=== PATIENT | female | born 1950 | race Caucasian/White ===

== ENCOUNTER 2021-04-30 15:51 | Inpatient (IN) ==
[2021-04-30 19:41] LABS: BASOPHILS # (AUTO) 0.1 X10^3/uL (0.0-0.1); BASOPHILS % (AUTO) 0.9 % (0.2-1.0); EOSINOPHILS # (AUTO) 0.2 x10^3/uL (0.0-0.2); EOSINOPHILS % (AUTO) 2.7 % (0.9-2.9); HEMATOCRIT 36.5 % (36.0-47.0); HEMOGLOBIN 12.3 g/dL (12.0-16.0); LYMPHOCYTES # (AUTO) 2.6 X10^3/uL (1.3-2.9); LYMPHOCYTES % (AUTO) 28.4 % (21.0-51.0); MEAN CORPUSCULAR HEMOGLOBIN 30.3 pg (27.0-34.0); MEAN CORPUSCULAR HGB CONC 33.8 g/dL (33.0-35.0); MEAN CORPUSCULAR VOLUME 89.7 fL (80.0-100.0); MEAN PLATELET VOLUME 9.3 fL (7.4-11.0); MONOCYTES # (AUTO) 0.8 x10^3/uL (0.3-0.8); MONOCYTES % (AUTO) 8.3 % (0.0-13.0); NEUTROPHILS # (AUTO) 5.5 x10^3/uL (2.2-4.8); NEUTROPHILS % (AUTO) 59.7 % (42.0-75.0); PLATELET COUNT 264 X10^3/uL (150.0-450.0); RED BLOOD COUNT 4.07 X10^6/uL (3.5-5.4); RED CELL DISTRIBUTION WIDTH 13.4 % (11.6-16.5); WHITE BLOOD COUNT 9.1 X10^3/uL (3.6-10.0)
[2021-04-30 20:00] LABS: CALCIUM 9.3 mg/dL (8.5-10.1); CARBON DIOXIDE 25.4 mmol/L (21-32); COR CA(FOR HYPOALB) 10.1 mg/dL (8.5-10.1); CREATININE 1.66 mg/dL (0.55-1.02); TOTAL PROTEIN 7.6 g/dL (6.4-8.2)
[2021-04-30 20:24] VITALS: BMI 40.0
[2021-04-30] MEDS ORDERED: NovoLIN R (or HumuLIN R) SC PRN (22:00)
[2021-04-30] MEDS ORDERED: ZOFRAN TAB 4 MG PO PRN (22:00)
[2021-04-30] MEDS ORDERED: NITROSTAT SL PRN (22:00)
[2021-04-30] MEDS: LR 1,000 ML IV 1,000 ML IV SCH (22:33)
[2021-04-30] MEDS: ZANAFLEX PO PRN (22:33)
[2021-05-01] MEDS: ULTRAM PO PRN ×3 (00:35→21:20)
[2021-05-01] MEDS ORDERED: ULTRAM ONE (00:35)
[2021-05-01 05:17] LABS: CALCIUM 8.7 mg/dL (8.5-10.1); CARBON DIOXIDE 29.1 mmol/L (21-32); CREATININE 1.35 mg/dL (0.55-1.02)
[2021-05-01] MEDS: LYRICA CAP 50 mg PO SCH ×3 (06:02→21:03)
[2021-05-01] MEDS ORDERED: NS 100 ML IV 100 ML ONE (08:05)
[2021-05-01] MEDS: COREG TAB 12.5 MG PO SCH ×2 (09:00→20:18)
[2021-05-01] MEDS: PROTONIX TAB 40 MG PO SCH (09:00)
[2021-05-01] MEDS: ZESTRIL TAB 10 MG PO SCH (09:00)
[2021-05-01] MEDS: ZETIA TAB 10 MG PO SCH (09:00)
--- NOTE | 2021-05-01 10:13 | CT ---
HISTORYCRITICAL LEFT LEG ISCHEMIASTUDYCTA abdomen, pelvis, and bilateral lower extremities without and with IV contrastCOMPARISONCTA 11/08/2020TECHNIQUEMultiple axial images of the abdomen, pelvis, and bilateral lower extremities were obtained from the lung bases to the plantar surface of the feet prior to and following the administration of IV contrast. 150 cc Omnipaque 350 IV contrast. 3D reconstructions were performed utilizing radial maximum intensity projection imaging. Dose reduction techniques including Automated Exposure Control (AEC) and adjustment of mA and kV were utilized.FINDINGSPossible fatty infiltration of the liver. Prior cholecystectomy. Pancreas and spleen appear normal. No adrenal nodules. Stable simple cyst is seen in the right kidney. No left renal lesion is seen. Bladder appears normal. Phleboliths are seen in the pelvis. No free pelvic fluid is seen. Appendix is not seen but no pericecal inflammation is seen. No evidence of bowel obstruction. No adnexal masses.Abdominal aorta: Abdominal aorta is normal in size. Diffuse partially calcified plaque is seen. Mild stenoses are seen in the origins of the SMA and celiac axis. More moderate stenosis is suspected within the mid to distal SMA. GRIS is probably occluded at its origin, similar to prior study. Moderate to high-grade stenoses are suspected in the renal arteries. There is an accessory left renal artery inferiorly. It has moderate stenosis but appears to enhance.Common iliac arteries: Calcified plaque causes mild stenosis.External iliac arteries: Mostly calcified plaque causes mild stenosis.Right lower extremity: Mild stenosis in the right [employer]. More moderate stenosis is seen in the origin of the right SFA with approximately 50 percent stenosis, similar to prior study. Mild stenoses are seen in the proximal course of the right SFA. There is a stent in the mid to distal right SFA with normal enhancement. Artifact from knee prosthesis limits evaluation of the popliteal artery. Distal popliteal artery enhances normally. There may be occlusion of the origin of the right anterior tibial artery. Collaterals appear to fill the proximal course of the right anterior tibial artery. High-grade stenoses are seen along the course of the right anterior tibial artery. All 3 vessels are seen enhancing at the ankle.Left lower extremity: There appears to be a 1.5 cm long area of occlusion in the left [employer], a changed appearance since prior study. Left SFA appears to be supplied via collaterals. Mild stenoses are seen in the proximal SFA. In the mid left SFA there is 60 percent focal stenosis, similar to prior study. Mild stenoses are seen in the distal left SFA. Less than 50 percent stenoses are seen in the popliteal artery. There is probable occlusion of the left anterior tibial artery origin with collaterals supplying the anterior tibial artery. Moderate to prominent stenoses are seen along the course of the anterior tibial artery. No all 3 vessels are seen enhancing at the ankle.IMPRESSIONPossible hemodynamically significant stenoses are seen in the SMA and renal arteries. GRIS is probably occluded.Patent right SFA stent with mild stenoses in the right [employer] and SFA. Right popliteal artery is obscured. Occlusion of the right anterior tibial artery is suspected with collateral supplying the proximal right anterior tibial artery.1.5 cm long area of occlusion of the left [employer], new since prior study. Collaterals supply the left SFA. Approximately 60 percent focal stenosis is seen in the mid left SFA, similar to prior study. Likely occlusion of the left anterior tibial artery origin with collaterals supplying the proximal left anterior tibial artery.Electronically signed by: Price Patel (May 01, 2021 10:12:07)
[2021-05-01] MEDS: LR 1,000 ML IV 1,000 ML IV SCH ×3 (10:28→20:38)
[2021-05-01] MEDS ORDERED: POTASSIUM CHLORIDE LIQ 20 MEQ UDC PO PRN (16:56)
[2021-05-01] MEDS ORDERED: KLOR-CON PO PRN (16:56)
[2021-05-01] MEDS ORDERED: K-RIDER 10 MEQ/NS 100 ML 10 MEQ/100 ML BAG IV PRN (16:56)
[2021-05-01] MEDS ORDERED: K-DUR TAB 20 MEQ PO PRN (16:56)
[2021-05-01] MEDS ORDERED: POTASSIUM CHL 40 MEQ/NS 0.45% 500 ML IV PRN (16:56)
[2021-05-01] MEDS ORDERED: MICRO K EXTEN CAP 10 MEQ PO PRN (16:56)
[2021-05-01] MEDS ORDERED: POTASSIUM CHL 60 MEQ/NS 0.45% 500 ML IV PRN (16:56)
[2021-05-01] MEDS: DESYREL PO SCH (20:18)
[2021-05-01] MEDS: ZANAFLEX PO PRN (20:19)
--- NOTE | 2021-05-01 22:18 | NOTE.SOAP ---
Soap Note Note for Day of Date of Exam: 05/01/21 Subjective Data Subjective Data: No change, still c/o left foot pain Objective Data Temperature: 97.7 F Pulse Rate: 54 Respiratory Rate: 19 Blood Pressure: 107/68 O2 Sat by Pulse Oximetry: 94 Objective Data: Nio change in PE. Absent pulse left foot. 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
[2021-05-02] MEDS: LR 1,000 ML IV 1,000 ML IV SCH ×2 (00:11→14:32)
[2021-05-02 05:19] LABS: BASOPHILS # (AUTO) 0.1 X10^3/uL (0.0-0.1); BASOPHILS % (AUTO) 0.9 % (0.2-1.0); EOSINOPHILS # (AUTO) 0.3 x10^3/uL (0.0-0.2); EOSINOPHILS % (AUTO) 4.4 % (0.9-2.9); HEMATOCRIT 29.5 % (36.0-47.0); LYMPHOCYTES # (AUTO) 2.4 X10^3/uL (1.3-2.9); LYMPHOCYTES % (AUTO) 33.6 % (21.0-51.0); MEAN CORPUSCULAR HEMOGLOBIN 30.6 pg (27.0-34.0); MEAN CORPUSCULAR HGB CONC 33.9 g/dL (33.0-35.0); MEAN CORPUSCULAR VOLUME 90.3 fL (80.0-100.0); MEAN PLATELET VOLUME 9.9 fL (7.4-11.0); MONOCYTES # (AUTO) 0.5 x10^3/uL (0.3-0.8); MONOCYTES % (AUTO) 7.3 % (0.0-13.0); NEUTROPHILS # (AUTO) 3.9 x10^3/uL (2.2-4.8); NEUTROPHILS % (AUTO) 53.8 % (42.0-75.0); PLATELET COUNT 207 X10^3/uL (150.0-450.0); RED BLOOD COUNT 3.27 X10^6/uL (3.5-5.4); RED CELL DISTRIBUTION WIDTH 13.6 % (11.6-16.5); WHITE BLOOD COUNT 7.3 X10^3/uL (3.6-10.0)
[2021-05-02] MEDS: LYRICA CAP 50 mg PO SCH ×3 (05:19→21:24)
[2021-05-02 05:29] LABS: ALANINE AMINOTRANSFERASE 13 Units/L (12-78); ALBUMIN 2.4 g/dL (3.4-5.0); ALKALINE PHOSPHATASE 110 Units/L (46-116); ASPARTATE AMINO TRANSFERASE 10 Units/L (15-37); BLOOD UREA NITROGEN 13 mg/dL (7-18); CALCIUM 8.5 mg/dL (8.5-10.1); CARBON DIOXIDE 28.1 mmol/L (21-32); CHLORIDE 105 mmol/L (98-107); COR CA(FOR HYPOALB) 9.8 mg/dL (8.5-10.1); COR NA(FOR HYPERGLY) 140 mmol/L (136-145); CREATININE 1.08 mg/dL (0.55-1.02); SODIUM 138 mmol/L (136-145); TOTAL PROTEIN 5.7 g/dL (6.4-8.2); eGFR NON BLACK RACES 53 (>60)
[2021-05-02] MEDS ORDERED: NS 1,000 ML IV 1,000 ML ONE (09:07)
[2021-05-02] MEDS ORDERED: ANCEF 1 GRAM IV PREMIX* 2 G/100 ML BAG IV ONE (09:08)
[2021-05-02] MEDS ORDERED: HEPARIN SODIUM INJ 5000 UNITS ONE ×2 (09:17→11:39)
[2021-05-02] MEDS ORDERED: MARCAINE 0.5% ONE ×2 (09:17→10:58)
[2021-05-02] MEDS ORDERED: HEPARIN SODIUM IN D5W 75,000 UNITS/1,500 ML BAG ONE (09:18)
[2021-05-02] MEDS ORDERED: FENTANYL VIAL INJ 100 mcg ONE ×2 (09:42→11:29)
[2021-05-02] MEDS ORDERED: KETALAR ONE (09:50)
[2021-05-02] MEDS ORDERED: SUPRANE ONE (09:50)
[2021-05-02] MEDS ORDERED: ZOFRAN INJ 4 MG VIAL ONE (09:50)
[2021-05-02] MEDS ORDERED: EPHEDRINE SULFATE INJ ONE (09:50)
[2021-05-02] MEDS ORDERED: QUELICIN (OR ANECTINE) ONE (09:50)
[2021-05-02] MEDS ORDERED: VERSED ONE (09:50)
[2021-05-02] MEDS ORDERED: NARCAN INJ ONE (09:50)
[2021-05-02] MEDS ORDERED: BRIDION ONE (09:50)
[2021-05-02] MEDS ORDERED: DIPRIVAN VIAL ONE (09:50)
[2021-05-02] MEDS ORDERED: XYLOCAINE 2 % (PLAIN) ONE (09:50)
[2021-05-02] MEDS ORDERED: HEPARIN SODIUM IN D5W 25,000 UNITS/500 ML BAG ONE (11:38)
[2021-05-02] MEDS: PROTONIX TAB 40 MG PO SCH (11:44)
[2021-05-02] MEDS: COREG TAB 12.5 MG PO SCH ×2 (11:44→20:00)
[2021-05-02] MEDS: ZETIA TAB 10 MG PO SCH (11:45)
[2021-05-02] MEDS: ZESTRIL TAB 10 MG PO SCH (11:45)
[2021-05-02] MEDS ORDERED: ZOFRAN INJ 4 MG VIAL IVP PRN (12:51)
[2021-05-02] MEDS ORDERED: REGLAN INJ 10 MG VIAL IVP PRN (12:51)
[2021-05-02] MEDS ORDERED: BENADRYL INJ 50 MG VIAL IVP PRN (12:51)
[2021-05-02] MEDS ORDERED: PHENERGAN INJ 25 MG IM PRN (12:51)
[2021-05-02] MEDS ORDERED: BARHEMSYS INJ IVP PRN (12:51)
[2021-05-02] MEDS ORDERED: PROTAMINE SULFATE 50 MG VIAL ONE (13:08)
--- NOTE | 2021-05-02 13:39 | OR.IMMED ---
IMMEDIATE POST-OP NOTE Immediate Post-Op Note Pre-Op Diagnosis: acutely ischemic left leg. And she'll break chill index equals 0. 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 Specimens Removed: plaque left femoral artery and thrombus Estimated Blood Loss: 200 cc Drains: NONE Complications: none Discharge Progress Notes: To ICU begin diabetic diet , probably discharge home tomorrow Condition: Stable Final Diagnosis: as above
[2021-05-02] MEDS: ULTRAM PO PRN ×2 (14:33→18:18)
--- NOTE | 2021-05-02 18:03 | DR.OPNOTE ---
OP NOTE Pre-Op Diagnosis: critical limb threatening ischemia left lower extreity Post-Op Diagnosis: same , occlusion of left common femoral artery Procedure Date Date Of Procedure: 05/02/21 Procedure: The patient was taken to the operative suite and placed in the supine position. Both groins and the entire left leg were prepped and draped in sterile fashion. Time out for the procedure obtained. Ultrasound used to identify the right common femoral artery and the skin overlying it infiltrated with 0.5 % Marcaine . Ultrasound used to guide puncture of the right common femoral artery and a 0. 012 inch guide wire placed with some difficulty. Incisio n made over the skin at the edge of the guidewire with a #r 11 knife blade and a micro sheath placed over the guide wire into the right common femoral artery. The small wire removed and exchanged for a 0. 035 inch Advantage glidewire and the micro sheath exchanged for a 5 Fr vascular sheath. The patient was administered 5000 units of intravenous Heparin. A flush catheter was placed over the guide wire into the aorta and diagnostic aortogram carried out with the power injector revealing normal aorta distally and normal iliac arteries bilaterally. The flush catheter was used to guide the guide wire down the left iliac artery and the flush catheter exchange for a Trailblazer catheter. Trailblazer catheter used to perform sequential arteriograms of the left leg which showed the complete total occlusion of a small segment of the mid portion of the left common femoral artery . The superficial femoral artery was normal with no significant disease. The patient had 2 vessel runoff by the posterior tibial and the peroneal arteries . The left anterior tibial was ocluded . I attempted to place a guide wire across the complete occlusion but it appeared to cause a dissection of the common femoral artery and at this point I decided to abandon peripheral intervention to perform a left femoral endarterectomy with patch angioplasty. The skin overlying the left groin was inj ected with 10 cc's of 0. 5% Marcaine. Vertical incision made with the number 15 by a knife throught the skin and dissection carried down , noting severe inflammation around where the Angioseal device which was used to close the left femoral artery puncture from a previous peripheral intervention case. The patient became uncomfortable and she was intubated and we finished the case as a general anesthesia. Difficult dissection was carried out and vessel loops were placed around the proximal common femoral artery at the junction with the external iliac artery. There was a good palpable pulse here. Vessel Loops also placed around the superficial femoral artery and the profunda femoris artery . A small clip placed on a branch exiting from the medial side of the common femoral artery. The patient had been given 5,000 units of intravenous Heparin already and the artery was clamped and occluded . The artery opened with a number 11 knife and Pott's scissors showing severe calcified plaque and thrombus near the site of the Angioseal device placement. Endarterectomy directly carried out with the Kuna dissector. The intima distally was tacked in 3 quadrants with 5-0 Prolene suture. Excellent flow through the proximal femoral artery was noted when I opened the clamp. The arteriotomy closed with a bovine pericardial patch measuring 8 cm by 0. 8 cm. This was sewn into place with running 5-0 Prolene suture . The patient has been given an additional 3,000 to happen at 1 hour. Once the patch was sewn into place all clamps removed and the patient had excellent flow through the femoral artery and the superficial femoral artery. There was no active bleeding. Surgicel placed over the patch and this was observed for 5 minutes. There was no active bleeding in the groin and it was closed in two layers of running 3-0 Vicryl suture .The skin closed with skin anna. The patient had excellent Doppler signal in the left posterior tibial artery at the ankle which had not been there preoperatively. She was taken to the PACU and then back to the ICU. Type of Anesthesia: Local (0.5% MArcaine ) Anesthesia Comment: MAc and then converted to general anesthesia Findings: as above Specimen/Pathology: plaque Type of Fluids Used:: Lactated Ringers Total Amount of Fluid Infused:: 750 cc Urine output: 250 cc EBL: 200 cc Complications:: none Needle/Sponge Count:: correct Disposition/Condition: Pt. tolerated procedure without difficulty. Extubated in the OR and taken to PACU in stable condition. Then returned to the ICU
--- NOTE | 2021-05-02 18:54 | NOTE.SOAP ---
Soap Note Note for Day of Date of Exam: 05/02/21 Subjective Data Subjective Data: Status post arteriogram of the left lower extremity with left femoral endarterectomy and Patch earlier today. Patient has tolerated this well. Taking a diet at this time. Complaining only of incisional tenderness in the left groin. Objective Data Temperature: 98.3 F Pulse Rate: 72 Respiratory Rate: 19 Blood Pressure: 115/55 O2 Sat by Pulse Oximetry: 99 Objective Data: Incision left groin clean and dry. Left foot warm. Duplex shows excellent arterial pulse in the left posterior tibial artery with audible biphasic sound. Assessment Assessment: Status post left femoral endarterectomy and patch with denominational of flow to the left foot . Plan Plan: Plan discharged to home in the morning. I have already started her Xarelto and aspirin back.
[2021-05-02] MEDS: DESYREL PO SCH (20:00)
[2021-05-02] MEDS: XARELTO PO SCH (20:01)
[2021-05-02] MEDS: ZANAFLEX PO PRN (20:01)
[2021-05-03] MEDS: LR 1,000 ML IV 1,000 ML IV SCH (03:34)
[2021-05-03 05:10] LABS: BASOPHILS # (AUTO) 0.1 X10^3/uL (0.0-0.1); BASOPHILS % (AUTO) 0.7 % (0.2-1.0); EOSINOPHILS # (AUTO) 0.3 x10^3/uL (0.0-0.2); EOSINOPHILS % (AUTO) 2.9 % (0.9-2.9); HEMATOCRIT 26.1 % (36.0-47.0); HEMOGLOBIN 8.8 g/dL (12.0-16.0); LYMPHOCYTES # (AUTO) 2.1 X10^3/uL (1.3-2.9); LYMPHOCYTES % (AUTO) 23.9 % (21.0-51.0); MEAN CORPUSCULAR HEMOGLOBIN 30.7 pg (27.0-34.0); MEAN CORPUSCULAR HGB CONC 33.8 g/dL (33.0-35.0); MEAN CORPUSCULAR VOLUME 90.9 fL (80.0-100.0); MEAN PLATELET VOLUME 10.1 fL (7.4-11.0); MONOCYTES # (AUTO) 0.9 x10^3/uL (0.3-0.8); MONOCYTES % (AUTO) 9.7 % (0.0-13.0); NEUTROPHILS # (AUTO) 5.7 x10^3/uL (2.2-4.8); NEUTROPHILS % (AUTO) 62.8 % (42.0-75.0); PLATELET COUNT 177 X10^3/uL (150.0-450.0); RED BLOOD COUNT 2.88 X10^6/uL (3.5-5.4); RED CELL DISTRIBUTION WIDTH 13.8 % (11.6-16.5)
[2021-05-03 05:14] LABS: CARBON DIOXIDE 28.8 mmol/L (21-32); CREATININE 1.15 mg/dL (0.55-1.02)
[2021-05-03] MEDS: LYRICA CAP 50 mg PO SCH (05:41)
[2021-05-03] MEDS: COREG TAB 12.5 MG PO SCH (08:15)
[2021-05-03] MEDS: ZETIA TAB 10 MG PO SCH (08:16)
[2021-05-03] MEDS: XARELTO PO SCH (08:16)
[2021-05-03] MEDS: ZESTRIL TAB 10 MG PO SCH (08:16)
[2021-05-03] MEDS: ULTRAM PO PRN (08:16)
[2021-05-03] MEDS: PROTONIX TAB 40 MG PO SCH (08:18)
[2021-05-03] MEDS ORDERED: ASPIRIN 81 MG CHEWTAB PO SCH (09:00)
--- NOTE | 2021-05-03 12:44 | W.DIS.FURT ---
Summary of Discharge Discharge Summary of Date Date of Exam: 05/03/21 Admission Date Date of Admission: 04/30/21 Admission Diagnosis Hospital Course: 70 year old female with severe peripheral vascular disease with ankle brachial indices of 0. 3 and 0. 4 . She had reconstruction of both legs with peripheral intervention but did require repeat stenting of the right leg. She presented approximately two months after the left leg intervention with rest pain and ankle brachial indices on this side which had been approximately 0. 9 were now approximately 0. 1. CT angiogram showed complete total occlusion of the mid common femoral artery. On table arteriogram confirmed this and I could not get a wire beyound the obstruction. It appeared as if the Angio-seal device had caused severe inflammation. Surgical exploration of this area confirmed that an she had endarterectomy and Patch angioplasty. Post rocedure her incision looks good with no drainage. She has an excellent doppler signal in the posterior tibial at the ankle with relief of rest pain pain. She will be discharged home now on her usual medications which also includes Xarelto 2. 5 mg BID and aspirin daily. She will be given a prescription for Percocet 5 mg tablets ,0ne every 6 hours PRN pain . She will follow up with me in one week. Vital Signs: Vital Signs (72 hours) 04/30/21 19:06 04/30/21 20:00 04/30/21 21:00 Temperature 97.8 F Pulse Rate 86 78 84 Respiratory Rate 20 22 30 H Blood Pressure O2 Sat by Pulse Oximetry 96 96 04/30/21 21:32 04/30/21 22:00 04/30/21 23:00 Temperature Pulse Rate 78 78 76 Respiratory Rate 26 H 19 26 H Blood Pressure 154/65 149/64 166/69 O2 Sat by Pulse Oximetry 96 94 L 96 05/01/21 00:01 05/01/21 00:35 05/01/21 01:00 Temperature 97.8 F Pulse Rate 59 L 51 L Respiratory Rate 20 20 19 Blood Pressure 133/59 139/65 O2 Sat by Pulse Oximetry 97 92 L 05/01/21 01:35 05/01/21 02:01 05/01/21 03:00 Temperature Pulse Rate 49 L 48 L Respiratory Rate 20 15 20 Blood Pressure 127/60 111/91 O2 Sat by Pulse Oximetry 93 L 95 05/01/21 04:00 05/01/21 05:00 05/01/21 06:00 Temperature 98.2 F Pulse Rate 43 L 45 L 51 L Respiratory Rate 17 16 8 L Blood Pressure 128/61 135/63 132/63 O2 Sat by Pulse Oximetry 96 96 97 05/01/21 08:00 05/01/21 09:00 05/01/21 10:00 Temperature 97.8 F Pulse Rate 43 L 54 L 53 L Respiratory Rate 16 20 22 Blood Pressure 138/60 129/62 123/76 O2 Sat by Pulse Oximetry 95 97 95 05/01/21 10:30 05/01/21 10:45 05/01/21 11:00 Temperature Pulse Rate 48 L 51 L 52 L Respiratory Rate 15 17 15 Blood Pressure O2 Sat by Pulse Oximetry 93 L 95 95 05/01/21 11:01 05/01/21 11:15 05/01/21 11:30 Temperature Pulse Rate 54 L 53 L 49 L Respiratory Rate 16 18 16 Blood Pressure 111/53 O2 Sat by Pulse Oximetry 93 L 95 96 05/01/21 11:45 05/01/21 12:00 05/01/21 12:15 Temperature 97.7 F Pulse Rate 48 L 53 L 50 L Respiratory Rate 24 16 17 Blood Pressure 103/68 O2 Sat by Pulse Oximetry 95 97 96 05/01/21 12:30 05/01/21 12:45 05/01/21 13:00 Temperature Pulse Rate 51 L 61 60 Respiratory Rate 18 18 20 Blood Pressure 151/68 O2 Sat by Pulse Oximetry 96 97 98 05/01/21 13:11 05/01/21 13:12 05/01/21 13:15 Temperature Pulse Rate 63 62 62 Respiratory Rate 15 18 26 H Blood Pressure 190/81 O2 Sat by Pulse Oximetry 98 97 05/01/21 13:16 05/01/21 13:30 05/01/21 13:45 Temperature Pulse Rate 60 56 L 53 L Respiratory Rate 37 H 25 H 18 Blood Pressure 151/68 O2 Sat by Pulse Oximetry 98 95 95 05/01/21 14:00 05/01/21 14:15 05/01/21 14:30 Temperature Pulse Rate 57 L 55 L 57 L Respiratory Rate 26 H 15 15 Blood Pressure 152/68 O2 Sat by Pulse Oximetry 95 94 L 94 L 05/01/21 14:45 05/01/21 15:00 05/01/21 15:15 Temperature Pulse Rate 52 L 53 L 54 L Respiratory Rate 16 17 14 Blood Pressure 146/66 O2 Sat by Pulse Oximetry 95 96 96 05/01/21 15:30 05/01/21 15:45 05/01/21 16:00 Temperature 97.7 F Pulse Rate 55 L 65 59 L Respiratory Rate 19 41 H 37 H Blood Pressure 141/63 O2 Sat by Pulse Oximetry 96 98 99 05/01/21 16:01 05/01/21 16:15 05/01/21 16:30 Temperature Pulse Rate 54 L 63 59 L Respiratory Rate 21 34 H 36 H Blood Pressure 141/63 O2 Sat by Pulse Oximetry 98 100 100 05/01/21 16:45 05/01/21 17:00 05/01/21 17:01 Temperature Pulse Rate 55 L 56 L 59 L Respiratory Rate 17 24 30 H Blood Pressure 121/55 O2 Sat by Pulse Oximetry 95 97 97 05/01/21 17:15 05/01/21 17:30 05/01/21 17:45 Temperature Pulse Rate 66 63 55 L Respiratory Rate 38 H 25 H 18 Blood Pressure O2 Sat by Pulse Oximetry 97 96 95 05/01/21 18:00 05/01/21 18:01 05/01/21 18:15 Temperature Pulse Rate 54 L 54 L 58 L Respiratory Rate 20 18 17 Blood Pressure 154/70 O2 Sat by Pulse Oximetry 95 94 L 97 05/01/21 18:30 05/01/21 18:45 05/01/21 19:00 Temperature Pulse Rate 54 L 57 L 57 L Respiratory Rate 21 22 22 Blood Pressure O2 Sat by Pulse Oximetry 95 94 L 96 05/01/21 19:15 05/01/21 19:30 05/01/21 19:45 Temperature Pulse Rate 55 L 55 L 52 L Respiratory Rate 16 24 18 Blood Pressure O2 Sat by Pulse Oximetry 95 96 95 05/01/21 20:07 05/01/21 20:10 05/01/21 20:15 Temperature 99.1 F Pulse Rate 77 60 68 Respiratory Rate 20 27 H Blood Pressure 187/75 159/65 O2 Sat by Pulse Oximetry 97 96 05/01/21 20:30 05/01/21 20:45 05/01/21 21:00 Temperature Pulse Rate 55 L 55 L 58 L Respiratory Rate 19 27 H 24 Blood Pressure O2 Sat by Pulse Oximetry 97 96 96 05/01/21 21:15 05/01/21 21:20 05/01/21 21:30 Temperature Pulse Rate 60 61 Respiratory Rate 28 H 20 27 H Blood Pressure O2 Sat by Pulse Oximetry 96 94 L 05/01/21 21:45 05/01/21 22:00 05/01/21 22:15 Temperature Pulse Rate 57 L 54 L 57 L Respiratory Rate 22 19 28 H Blood Pressure O2 Sat by Pulse Oximetry 96 94 L 95 05/01/21 22:18 05/01/21 22:20 05/01/21 22:30 Temperature 97.7 F Pulse Rate 54 L 54 L Respiratory Rate 19 20 17 Blood Pressure 107/68 O2 Sat by Pulse Oximetry 94 L 96 05/01/21 22:45 05/01/21 23:00 05/01/21 23:15 Temperature Pulse Rate 57 L 60 62 Respiratory Rate 18 22 16 Blood Pressure O2 Sat by Pulse Oximetry 96 96 93 L 05/01/21 23:30 05/01/21 23:36 05/01/21 23:45 Temperature Pulse Rate 59 L 55 L 52 L Respiratory Rate 13 13 8 L Blood Pressure 121/56 O2 Sat by Pulse Oximetry 94 L 95 95 05/02/21 00:00 05/02/21 00:15 05/02/21 00:30 Temperature 98.2 F Pulse Rate 53 L 56 L 56 L Respiratory Rate 14 17 16 Blood Pressure O2 Sat by Pulse Oximetry 95 96 94 L 05/02/21 00:45 05/02/21 01:00 05/02/21 01:15 Temperature Pulse Rate 55 L 53 L 52 L Respiratory Rate 18 19 18 Blood Pressure O2 Sat by Pulse Oximetry 95 96 96 05/02/21 01:30 05/02/21 01:45 05/02/21 02:00 Temperature Pulse Rate 53 L 50 L 52 L Respiratory Rate 17 17 17 Blood Pressure O2 Sat by Pulse Oximetry 96 96 95 05/02/21 02:15 05/02/21 02:30 05/02/21 02:45 Temperature Pulse Rate 52 L 50 L 51 L Respiratory Rate 17 17 17 Blood Pressure O2 Sat by Pulse Oximetry 97 97 97 05/02/21 03:00 05/02/21 03:15 05/02/21 03:30 Temperature Pulse Rate 50 L 51 L 50 L Respiratory Rate 17 18 17 Blood Pressure O2 Sat by Pulse Oximetry 96 97 98 05/02/21 03:45 05/02/21 04:00 05/02/21 04:15 Temperature Pulse Rate 53 L 48 L 49 L Respiratory Rate 16 16 18 Blood Pressure O2 Sat by Pulse Oximetry 97 96 96 05/02/21 04:30 05/02/21 04:45 05/02/21 05:00 Temperature Pulse Rate 50 L 47 L 48 L Respiratory Rate 15 16 16 Blood Pressure O2 Sat by Pulse Oximetry 96 96 97 05/02/21 05:15 05/02/21 05:30 05/02/21 05:45 Temperature Pulse Rate 45 L 48 L 50 L Respiratory Rate 16 15 16 Blood Pressure O2 Sat by Pulse Oximetry 97 97 96 05/02/21 05:54 05/02/21 06:00 05/02/21 06:15 Temperature 98.0 F Pulse Rate 50 L 50 L 50 L Respiratory Rate 15 16 16 Blood Pressure 135/65 O2 Sat by Pulse Oximetry 96 96 96 05/02/21 06:30 05/02/21 06:45 05/02/21 07:00 Temperature Pulse Rate 51 L 48 L 47 L Respiratory Rate 15 15 15 Blood Pressure O2 Sat by Pulse Oximetry 95 96 96 05/02/21 07:15 05/02/21 07:30 05/02/21 07:45 Temperature 98.0 F Pulse Rate 49 L 50 L 49 L Respiratory Rate 14 15 17 Blood Pressure O2 Sat by Pulse Oximetry 97 97 97 05/02/21 08:00 05/02/21 08:15 05/02/21 08:30 Temperature Pulse Rate 49 L 50 L 50 L Respiratory Rate 14 15 15 Blood Pressure O2 Sat by Pulse Oximetry 96 98 96 05/02/21 08:45 05/02/21 09:31 05/02/21 13:21 Temperature 98.0 F 98.8 F Pulse Rate 56 L 51 L 56 L Respiratory Rate 16 18 18 Blood Pressure 133/58 142/60 O2 Sat by Pulse Oximetry 97 95 95 05/02/21 13:31 05/02/21 13:32 05/02/21 13:36 Temperature Pulse Rate 57 L 57 L 58 L Respiratory Rate 18 18 18 Blood Pressure 170/76 169/71 153/75 O2 Sat by Pulse Oximetry 100 100 100 05/02/21 13:41 05/02/21 13:46 05/02/21 13:51 Temperature Pulse Rate 58 L 58 L 56 L Respiratory Rate 18 18 18 Blood Pressure 142/63 153/72 160/67 O2 Sat by Pulse Oximetry 100 96 95 05/02/21 14:03 05/02/21 14:04 05/02/21 14:11 Temperature Pulse Rate 55 L 54 L 55 L Respiratory Rate 29 H Blood Pressure 142/58 187/74 O2 Sat by Pulse Oximetry 98 99 100 05/02/21 14:15 05/02/21 14:16 05/02/21 14:30 Temperature Pulse Rate 49 L 49 L 54 L Respiratory Rate 24 21 25 H Blood Pressure 137/63 O2 Sat by Pulse Oximetry 98 98 100 05/02/21 14:31 05/02/21 14:33 05/02/21 14:45 Temperature Pulse Rate 55 L 52 L Respiratory Rate 23 20 23 Blood Pressure 153/63 144/64 O2 Sat by Pulse Oximetry 100 92 L 05/02/21 15:00 05/02/21 15:01 05/02/21 15:15 Temperature Pulse Rate 60 59 L 51 L Respiratory Rate 13 15 24 Blood Pressure 155/65 O2 Sat by Pulse Oximetry 96 87 L 96 05/02/21 15:20 05/02/21 15:30 05/02/21 15:31 Temperature Pulse Rate 52 L 55 L 57 L Respiratory Rate 15 15 12 Blood Pressure 159/66 122/73 O2 Sat by Pulse Oximetry 95 100 100 05/02/21 15:33 05/02/21 15:45 05/02/21 16:00 Temperature 98.3 F Pulse Rate 57 L 59 L Respiratory Rate 18 16 16 Blood Pressure O2 Sat by Pulse Oximetry 100 100 05/02/21 16:02 05/02/21 16:07 05/02/21 16:15 Temperature Pulse Rate 57 L 58 L 59 L Respiratory Rate 16 15 19 Blood Pressure 98/34 116/64 O2 Sat by Pulse Oximetry 100 100 100 05/02/21 16:30 05/02/21 16:45 05/02/21 17:00 Temperature Pulse Rate 60 67 63 Respiratory Rate 21 35 H 32 H Blood Pressure 132/61 O2 Sat by Pulse Oximetry 100 97 94 L 05/02/21 17:01 05/02/21 17:15 05/02/21 17:30 Temperature Pulse Rate 73 65 63 Respiratory Rate 26 H 22 16 Blood Pressure 126/57 124/54 O2 Sat by Pulse Oximetry 100 100 100 05/02/21 18:00 05/02/21 18:18 05/02/21 18:53 Temperature 98.3 F Pulse Rate 72 72 Respiratory Rate 19 20 19 Blood Pressure 115/55 115/55 O2 Sat by Pulse Oximetry 99 99 05/02/21 19:00 05/02/21 19:18 05/02/21 20:00 Temperature 100.3 F H Pulse Rate 69 71 Respiratory Rate 26 H 18 26 H Blood Pressure 121/56 130/62 O2 Sat by Pulse Oximetry 97 97 05/02/21 20:23 05/02/21 20:30 05/02/21 21:00 Temperature Pulse Rate 62 62 58 L Respiratory Rate 22 30 H 18 Blood Pressure 130/62 130/58 O2 Sat by Pulse Oximetry 99 98 92 L 05/02/21 21:01 05/02/21 21:30 05/02/21 22:00 Temperature Pulse Rate 59 L 56 L 59 L Respiratory Rate 18 19 24 Blood Pressure 130/58 109/59 O2 Sat by Pulse Oximetry 92 L 100 100 05/02/21 22:01 05/02/21 22:32 05/02/21 23:00 Temperature 99.0 F Pulse Rate 60 57 L 56 L Respiratory Rate 27 H 17 18 Blood Pressure 109/59 115/53 O2 Sat by Pulse Oximetry 100 93 L 92 L 05/02/21 23:30 05/03/21 00:00 05/03/21 00:01 Temperature Pulse Rate 54 L 57 L 56 L Respiratory Rate 20 21 19 Blood Pressure 120/54 120/54 O2 Sat by Pulse Oximetry 95 92 L 93 L 05/03/21 00:30 05/03/21 01:00 05/03/21 01:01 Temperature Pulse Rate 55 L 65 63 Respiratory Rate 20 21 19 Blood Pressure 112/52 112/52 O2 Sat by Pulse Oximetry 91 L 93 L 93 L 05/03/21 01:30 05/03/21 02:00 05/03/21 02:01 Temperature Pulse Rate 59 L 63 61 Respiratory Rate 19 36 H 30 H Blood Pressure 133/56 64/41 O2 Sat by Pulse Oximetry 94 L 98 98 05/03/21 02:08 05/03/21 02:09 05/03/21 02:30 Temperature Pulse Rate 60 61 Respiratory Rate 26 H 21 Blood Pressure 133/63 133/56 O2 Sat by Pulse Oximetry 97 97 05/03/21 03:00 05/03/21 03:01 05/03/21 03:30 Temperature Pulse Rate 58 L 59 L Respiratory Rate 21 19 Blood Pressure 113/50 113/50 O2 Sat by Pulse Oximetry 98 97 05/03/21 04:00 05/03/21 04:01 05/03/21 04:30 Temperature Pulse Rate 62 62 60 Respiratory Rate 17 18 17 Blood Pressure 107/48 107/48 O2 Sat by Pulse Oximetry 93 L 92 L 92 L 05/03/21 05:00 05/03/21 05:01 05/03/21 05:30 Temperature Pulse Rate 58 L 57 L 57 L Respiratory Rate 15 16 21 Blood Pressure 107/52 107/52 O2 Sat by Pulse Oximetry 100 100 100 05/03/21 06:00 05/03/21 06:06 05/03/21 06:30 Temperature Pulse Rate 63 62 64 Respiratory Rate 18 17 18 Blood Pressure 112/51 112/51 O2 Sat by Pulse Oximetry 100 100 93 L 05/03/21 07:00 05/03/21 07:30 05/03/21 07:49 Temperature Pulse Rate 65 66 73 Respiratory Rate 18 23 25 H Blood Pressure 130/58 O2 Sat by Pulse Oximetry 92 L 93 L 96 05/03/21 08:00 05/03/21 08:01 05/03/21 08:16 Temperature Pulse Rate 76 76 Respiratory Rate 27 H 28 H 22 Blood Pressure 126/54 O2 Sat by Pulse Oximetry 95 95 05/03/21 08:30 05/03/21 09:00 05/03/21 09:01 Temperature Pulse Rate 80 79 79 Respiratory Rate 41 H 26 H 21 Blood Pressure 104/42 O2 Sat by Pulse Oximetry 92 L 95 95 05/03/21 09:16 05/03/21 09:30 05/03/21 09:51 Temperature Pulse Rate 75 69 Respiratory Rate 18 17 22 Blood Pressure 95/77 O2 Sat by Pulse Oximetry 94 L 96 05/03/21 10:00 05/03/21 10:01 05/03/21 10:30 Temperature Pulse Rate 70 70 67 Respiratory Rate 19 18 21 Blood Pressure 107/47 O2 Sat by Pulse Oximetry 91 L 91 L 90 L 05/03/21 11:00 05/03/21 11:30 Temperature Pulse Rate 62 66 Respiratory Rate 17 19 Blood Pressure 123/58 O2 Sat by Pulse Oximetry 91 L 90 L Labs: Laboratory Last Values WBC 9.0 X10^3/uL (3.6-10.0) 05/03/21 04:38 RBC 2.88 X10^6/uL (3.5-5.4) L 05/03/21 04:38 Hgb 8.8 g/dL (12.0-16.0) L 05/03/21 04:38 Hct 26.1 % (36.0-47.0) L 05/03/21 04:38 MCV 90.9 fL (80.0-100.0) 05/03/21 04:38 MCH 30.7 pg (27.0-34.0) 05/03/21 04:38 MCHC 33.8 g/dL (33.0-35.0) 05/03/21 04:38 RDW 13.8 % (11.6-16.5) 05/03/21 04:38 Plt Count 177 X10^3/uL (150.0-450.0) 05/03/21 04:38 MPV 10.1 fL (7.4-11.0) 05/03/21 04:38 Neut % (Auto) 62.8 % (42.0-75.0) 05/03/21 04:38 Lymph % (Auto) 23.9 % (21.0-51.0) 05/03/21 04:38 [place] % (Auto) 9.7 % (0.0-13.0) 05/03/21 04:38 Eos % (Auto) 2.9 % (0.9-2.9) 05/03/21 04:38 Baso % (Auto) 0.7 % (0.2-1.0) 05/03/21 04:38 Neut # (Auto) 5.7 x10^3/uL (2.2-4.8) H 05/03/21 04:38 Lymph # (Auto) 2.1 X10^3/uL (1.3-2.9) 05/03/21 04:38 [place] # (Auto) 0.9 x10^3/uL (0.3-0.8) H 05/03/21 04:38 Eos # (Auto) 0.3 x10^3/uL (0.0-0.2) H 05/03/21 04:38 Baso # (Auto) 0.1 X10^3/uL (0.0-0.1) 05/03/21 04:38 Absolute Nucleated RBC 0.0 /100WBC 05/03/21 04:38 PT 14.4 SECONDS (11.8-14.3) 04/30/21 19:30 INR Target Range - 04/30/21 19:30 INR 1.17 (0.8-1.3) 04/30/21 19:30 APTT 29.5 SECONDS (22.9-36.5) 04/30/21 19:30 PTT Comment - 04/30/21 19:30 Sodium 134 mmol/L (136-145) L 05/03/21 04:38 Corrected Sodium 136 mmol/L (136-145) 05/03/21 04:38 Potassium 4.1 mmol/L (3.5-5.1) 05/03/21 04:38 Chloride 102 mmol/L (98-107) 05/03/21 04:38 Carbon Dioxide 28.8 mmol/L (21-32) 05/03/21 04:38 BUN 12 mg/dL (7-18) 05/03/21 04:38 Creatinine 1.15 mg/dL (0.55-1.02) H 05/03/21 04:38 Est GFR (MDRD) Af Amer 60 (>60) 05/03/21 04:38 Est GFR (MDRD) Non-Af 50 (>60) L 05/03/21 04:38 Glucose 194 mg/dL (65-99) H 05/03/21 04:38 POC Glucose (mg/dL) 193 mg/dL (65-99) H 05/03/21 11:24 Calcium 8.0 mg/dL (8.5-10.1) L 05/03/21 04:38 Corrected Calcium 9.8 mg/dL (8.5-10.1) 05/02/21 04:27 Total Bilirubin 0.10 mg/dL (0.2-1.0) L 05/02/21 04:27 AST 10 Units/L (15-37) L 05/02/21 04:27 ALT 13 Units/L (12-78) 05/02/21 04:27 Alkaline Phosphatase 110 Units/L (46-116) 05/02/21 04:27 Total Protein 5.7 g/dL (6.4-8.2) L 05/02/21 04:27 Albumin 2.4 g/dL (3.4-5.0) L 05/02/21 04:27 Globulin 3.3 g/dL (2.5-4.5) 05/02/21 04:27 Albumin/Globulin Ratio 0.7 Ratio (1.1-2.1) L 05/02/21 04:27 SARS CoV-2 RNA Rapid ROSSY Negative (NEGATIVE) 04/30/21 17:52 Reason For Visit: ISCHEMIA TO LEFT LEG Discharge Date Discharge Date: 05/03/21 Discharge Diagnosis All Active Problems (Updated 04/30/21 @ 22:09 by Darren Kelley) Critical limb ischemia of left lower extremity (Acute) Plan of Treatment: Continue with present treatment and follow up plan. Pt is to keep follow up appointment as instructed and take medications as ordered. 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 3 and 0. 4 . She had reconstruction of both legs with peripheral intervention but did require repeat stenting of the right leg. She presented approximately two months after the left leg intervention with rest pain and ankle brachial indices on this side which had been approximately 0. 9 were now approximately 0. 1. CT angiogram showed complete total occlusion of the mid common femoral artery. On table arteriogram confirmed this and I could not get a wire beyound the obstruction. It appeared as if the Angio-seal device had caused severe inflammation. Surgical exploration of this area confirmed that an she had endarterectomy and Patch angioplasty. Post rocedure her incision looks good with no drainage. She has an excellent doppler signal in the posterior tibial at the ankle with relief of rest pain pain. She will be discharged home now on her usual medications which also includes Xarelto 2. 5 mg BID and aspirin daily. She will be given a prescription for Percocet 5 mg tablets ,0ne every 6 hours PRN pain . She will follow up with me in one week. Patient Disposition: 01 HOME, SELF-CARE Condition: Stable Health Concerns: Post Hospitalization: new medications and changes needed to prevent readmission or further decline. Pt educated and given instructions on all concerns. Care Plan Goals: Problem: Potential for Infection Goal: Mother will remain free from infection. Verbalizes preventable risk. Instructions: Follow provided instructions. Follow up with primary physician as directed. Contact primary care physician or report to the closest Emergency Room if condition worsens. Plan of Treatment: Continue with present treatment and follow up plan. Pt is to keep follow up appointment as instructed and take medications as ordered. 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 and Patch angioplasty Prescription drug monitoring program results: PDMP reviewed and no concerns identified Prescriptions: New oxycodone-acetaminophen [Percocet] 5-325 mg tablet 1 tab PO Q6H MDD 6 PRNQty: 30 RF: 0 Continued alprazolam 0.5 mg tablet 0.5 mg PO TID PRNRF: 0 fluticasone propionate 50 mcg/actuation spray,suspension 1 spray INTRANASAL DAILY RF: 0 furosemide [Lasix] 40 mg Tablet 40 mg PO HS RF: 0 carvedilol 12.5 mg Tablet 12.5 mg PO BID RF: 0 tizanidine 4 mg Tablet 4 mg PO QHS RF: 0 metformin 850 mg Tablet 850 mg PO TID RF: 0 clopidogrel 75 mg Tablet 75 mg PO HS RF: 0 trazodone 100 mg Tablet 100 mg PO HS RF: 0 pantoprazole 40 mg Tablet,Delayed Release (Dr/Ec) 40 mg PO HS RF: 0 lisinopril 10 mg Tablet 10 mg PO HS RF: 0 nitroglycerin 0.4 mg Tablet, Sublingual 0.4 mg SUBLINGUAL ONCE RF: 0 glipizide 5 mg Tablet 5 mg PO BID RF: 0 ezetimibe 10 mg Tablet 10 mg PO HS RF: 0 pregabalin 50 mg Capsule 50 mg PO TID RF: 0 Xarelto 2.5 mg Tablet 2.5 mg PO BID RF: 0 Follow ups/Referrals Follow ups/Referrals: Mary Newton [Primary Care Provider] - 1 WEEK Instructions Instructions: Diabetes Mellitus and Sick Day Management, Atherosclerosis, Hypertension, Adult, [id number] Stand Alone Forms: Excuse From Work or School, Precautions for COVID19, [facility], Patient Portal, Social Distancing
[2021-05-03 13:20] VITALS: BP 132/58
== END 2021-05-03 13:40 | disposition home or self-care (01) | DRG 272 ==
LOC: ICU → OBSVTOIN 17:22
PROVIDERS: ADMIT Surgery; ATTEND Surgery
DX: E11.51 Type 2 diabetes mellitus with diabetic peripheral angiopathy without gangrene; M79.672 Pain in left foot; I25.10 Atherosclerotic heart disease of native coronary artery without angina pectoris; I10 Essential (primary) hypertension; K21.9 Gastro-esophageal reflux disease without esophagitis; Z20.822 Contact with and (suspected) exposure to COVID-19; I70.222 Atherosclerosis of native arteries of extremities with rest pain, left leg; Z86.73 Personal history of transient ischemic attack (TIA), and cerebral infarction without residual deficits

== ENCOUNTER 2021-05-30 15:33 | Observation (INO) ==
[2021-05-30 15:57] VITALS: BMI 39.4
--- NOTE | 2021-05-30 19:45 | DR.EXTPAIN ---
HPI Time seen Time Seen by Provider: 05/30/21 19:42 PCP Primary Care Physician: Dr Lomeli HPI Comment HPI Comment: PATIENT IS 70YR OLD FEMALE IN ER WITH INFECTION TO LEFT GROIN AREA. CATH PLACE IN LEFT GROIN 05/02/21 AND AREA HAVE BEING INFLAME SINCE. AREA IS DRAINING PUS AND SHE IS CURRENTLY ON CLINDAMYCIN. SHE IS A DIABETIC PATIENT. Complaint/Symptoms Chief Complaint Doctor Comments: INFECTION LEFT GROIN AREA POST CATHETER INSERTION 05/02/21 FOR A PROCEDURE. AREA DRAINING PUS. ON CLINDAMYCIN. Chief Complaint:: Pt had a cath to the L groin on 05/02/21, has wound to the site that has continued to worsen, purulent and odorous drainage reported, has been on clindamycin without improvement. COVID-19 Coronavirus risk:travel/contact w/high risk person: Yes Has patient experienced Coronavirus symptoms: No Nurses notes reviewed Nurses Notes Review: Yes Source History Provided: Patient and Family Member Mode of arrival Mode of Arrival: Ambulatory Timing Onset of Chief Complaint: 05/09/21 Context History of: Arthritis Associated signs and symptoms Associated Signs and Symptoms: Weakness, Pain and Swelling Other history Other History: DM, HTN. PMH PMH Past Medical History: Yes Past Medical History: Diabetes, Dyslipidemia, GERD and Hypertension Past Surgical History: Yes Surgical History: Angioplasty/Stents and Hysterectomy Past Surgical History Comment: colostomy d/t trauma, colostomy reversal, cardiac stents x7 Family History History of Family Medical Conditions: Yes Family Medical History: Diabetes Mellitus and Hypertension Social History Alcohol Use: None Do you use any recreational Drugs:: No Lives With: Family Lives Where: Home Travel Risk Coronavirus risk:travel/contact w/high risk person: Yes Has patient experienced Coronavirus symptoms: No Infectious screening In the last 2 months have you had wt loss of >10#?: NO Have you had fever, night sweats or hemotysis?: No Have you traveled outside the country in the last 6 months?: No Isolation: Standard ROS Review of Systems Constitutional: See HPI, Weakness and Fatigue Eyes: No Symptoms Reported and See HPI ENTM: No Symptoms Reported and See HPI; negative Nose Discharge and Nose Congestion Respiratoy: See HPI; negative Moist Cough, Short of Breath and Wheezing Cardiovascular: No Symptoms Reported and See HPI; negative Chest Pain Gastrointestinal/Abdominal: No Symptoms Reported and See HPI; negative Abdominal Pain, Diarrhea and Vomiting Genitourinary: See HPI and Pain (LEFT GRION PAIN.); negative Dysuria and Hematuria Neurological: See HPI and Weakness; negative Headache and Dizziness Musculoskeletal: See HPI and Other (LEFT GROIN PAIN.); negative Back Pain Integumentary: See HPI and Other (left groin infected wound.) Hematologic/Lymphatic: See HPI and Easy Bruising Endocrine: No Symptoms Reported and See HPI; negative Increased Thirst and Increased Urine Psychiatric: No Symptoms Reported and See HPI PE Vital Signs Vitals: Temperature 97.5 F Pulse Rate 77 Respiratory Rate 18 Blood Pressure 150/67 O2 Sat by Pulse Oximetry 97 General Limitations: No Limitations General Appearance: Alert and In No Apparent Distress Head Head Exam: Normal Inspection Eyes Eye exam: Normal Appearance; negative Scleral Icterus and Conjunctival Injection ENT ENT Exam: Normal Exam, Normal Oropharynx, Normal External Ear Exam and TM's Normal Bilaterally Neck Neck Exam: Normal Inspection and Trachea Midline; negative Tenderness Chest Chest Inspection: Normal Inspection and Symmetric Chest Wall Rise; negative Tenderness Respiratory Respiratory Exam: Normal Lung Sounds Bilat; negative Accessory Muscle Use, Chest Wall Tenderness, Respiratory Distress and Stridor Respiratory Exam: Bilateral: Rhonchi and Lower: Rhonchi Cardiovascular Cardiovascular Exam: Regular Rate, Normal Rhythm, Normal Heart Sounds and Systolic Murmur; negative Diastolic Murmur Abdominal Exam Abdominal Exam: Normal Inspection, Normal Bowel Sounds and Soft; negative Tenderness Extremities Extremities Exam: Normal Inspection and Normal Capillary Refill Back Back Exam: Normal Inspection and Paraspinal Tenderness (LOWER BACK.) Neurological Neurological Exam: Alert and Oriented X3; negative Motor Sensory Deficit Psychiatric Psychiatric Exam: Normal Affect and Normal Mood Skin Skin Exam: Dry and Erythema Type of Lesion: Abscess (LT GROIN.) Distribution: LLE Description: Tenderness MDM Differential Diagnosis Differential Diagnosis: Other (LEFT GROIN INFECTION AND ABSCESS) COURSE Treatment Treatment: SEE ORDERS. PATIENT GIVEN MORPHIN 4MG IV AND ZOFRAN 4MG IV IN ER. PAIN IMPROVING. VACOMYCIN 1GM IVPB IS GIVEN TO PATIENT IN ER. LABS DISCUSSED AND ADMITTED TO HOSPITAL FOR FURTHER MANAGEMENT. Reevaluation 1st: Improved Consultation Consultation Comments: DISCUSSED PATIENT WITH DR. CHESTER. HE WILL ADMIT PATIENT. Education/Counseling Education/Counseling: Patient and Family Educated On: Diagnosis ROR Labs Reviewed Laboratory Results Reviewed?: Yes Result Diagrams: 06/03/21 06:30 06/03/21 06:30 Laboratory: 05/30/21 19:54 Groin Wound Gram Stain - Final 05/30/21 19:54 Groin Wound Culture - Final Klebsiella Pneumoniae 05/30/21 20:40 Blood Blood Culture - Final 05/30/21 20:35 Blood Blood Culture - Final WBC 8.4 X10^3/uL (3.6-10.0) 05/30/21 20:35 RBC 3.79 X10^6/uL (3.5-5.4) 05/30/21 20:35 Hgb 11.4 g/dL (12.0-16.0) L 05/30/21 20:35 Hct 33.8 % (36.0-47.0) L 05/30/21 20:35 MCV 89.1 fL (80.0-100.0) 05/30/21 20:35 MCH 30.0 pg (27.0-34.0) 05/30/21 20:35 MCHC 33.6 g/dL (33.0-35.0) 05/30/21 20:35 RDW 14.2 % (11.6-16.5) 05/30/21 20:35 Plt Count 299 X10^3/uL (150.0-450.0) 05/30/21 20:35 MPV 9.6 fL (7.4-11.0) 05/30/21 20:35 Neut % (Auto) 63.3 % (42.0-75.0) 05/30/21 20:35 Lymph % (Auto) 19.2 % (21.0-51.0) L 05/30/21 20:35 [place] % (Auto) 8.8 % (0.0-13.0) 05/30/21 20:35 Eos % (Auto) 5.6 % (0.9-2.9) H 05/30/21 20:35 Baso % (Auto) 3.1 % (0.2-1.0) H 05/30/21 20:35 Neut # (Auto) 5.3 x10^3/uL (2.2-4.8) H 05/30/21 20:35 Lymph # (Auto) 1.6 X10^3/uL (1.3-2.9) 05/30/21 20:35 Kay # (Auto) 0.7 x10^3/uL (0.3-0.8) 05/30/21 20:35 Eos # (Auto) 0.5 x10^3/uL (0.0-0.2) H 05/30/21 20:35 Baso # (Auto) 0.3 X10^3/uL (0.0-0.1) H 05/30/21 20:35 Absolute Nucleated RBC 0.0 /100WBC 05/30/21 20:35 Sodium 140 mmol/L (136-145) 05/30/21 20:40 Corrected Sodium TNP 05/30/21 20:40 Potassium 4.1 mmol/L (3.5-5.1) 05/30/21 20:40 Chloride 102 mmol/L (98-107) 05/30/21 20:40 Carbon Dioxide 26.0 mmol/L (21-32) 05/30/21 20:40 BUN 28 mg/dL (7-18) H 05/30/21 20:40 Creatinine 1.98 mg/dL (0.55-1.02) H 05/30/21 20:40 Est GFR (MDRD) Af Amer 32 (>60) L 05/30/21 20:40 Est GFR (MDRD) Non-Af 26 (>60) L 05/30/21 20:40 Glucose 104 mg/dL (65-99) H 05/30/21 20:40 Lactic Acid 1.4 mmol/L (0.4-2.0) 05/30/21 20:40 Calcium 8.7 mg/dL (8.5-10.1) 05/30/21 20:40 Corrected Calcium 9.4 mg/dL (8.5-10.1) 05/30/21 20:40 Total Bilirubin 0.30 mg/dL (0.2-1.0) 05/30/21 20:40 AST 19 Units/L (15-37) 05/30/21 20:40 ALT 20 Units/L (12-78) 05/30/21 20:40 Alkaline Phosphatase 125 Units/L (46-116) H 05/30/21 20:40 Total Protein 7.6 g/dL (6.4-8.2) 05/30/21 20:40 Albumin 3.1 g/dL (3.4-5.0) L 05/30/21 20:40 Globulin 4.5 g/dL (2.5-4.5) 05/30/21 20:40 Albumin/Globulin Ratio 0.7 Ratio (1.1-2.1) L 05/30/21 20:40 SARS CoV-2 RNA Rapid ROSSY Negative (NEGATIVE) 05/31/21 01:22 Opioid Opioid Risk Tool Age (Danny box if 16-45): No History of Preadolescent Sexual Abuse: No Total: 0 Total Score Risk Category: Low Risk Copyright: Grant ESPINO predicting aberrant behaviors Diagnosis Discharge Problem: Abscess or cellulitis of groin, Cellulitis of groin, left Instructions Instructions: Tips for Eating Away From Home If You Have Diabetes Incision and Drainage, Care After Skin Abscess, [id number] Diabetes Mellitus and Skin Care Living With Diabetes Hypertension, Adult, [id number] Managing Your Hypertension Hypertension Forms: Excuse From Work or School Precautions for COVID19 [facility] Social Distancing
[2021-05-30] MEDS ORDERED: ZOFRAN INJ 4 MG VIAL IVP ONE (20:25)
[2021-05-30] MEDS ORDERED: MORPHINE SULFATE INJ 4 MG IVP ONE (20:25)
[2021-05-30] MEDS ORDERED: VANCOMYCIN IV *PREMIX 1 G/200 ML BAG 1 G/200 ML PIGGYBACK IV ONE ×2 (20:27→21:27)
[2021-05-30 21:08] LABS: BASOPHILS # (AUTO) 0.3 X10^3/uL (0.0-0.1); BASOPHILS % (AUTO) 3.1 % (0.2-1.0); EOSINOPHILS # (AUTO) 0.5 x10^3/uL (0.0-0.2); EOSINOPHILS % (AUTO) 5.6 % (0.9-2.9); HEMATOCRIT 33.8 % (36.0-47.0); HEMOGLOBIN 11.4 g/dL (12.0-16.0); LYMPHOCYTES # (AUTO) 1.6 X10^3/uL (1.3-2.9); LYMPHOCYTES % (AUTO) 19.2 % (21.0-51.0); MEAN CORPUSCULAR HGB CONC 33.6 g/dL (33.0-35.0); MEAN CORPUSCULAR VOLUME 89.1 fL (80.0-100.0); MEAN PLATELET VOLUME 9.6 fL (7.4-11.0); MONOCYTES # (AUTO) 0.7 x10^3/uL (0.3-0.8); MONOCYTES % (AUTO) 8.8 % (0.0-13.0); NEUTROPHILS # (AUTO) 5.3 x10^3/uL (2.2-4.8); NEUTROPHILS % (AUTO) 63.3 % (42.0-75.0); RED BLOOD COUNT 3.79 X10^6/uL (3.5-5.4); RED CELL DISTRIBUTION WIDTH 14.2 % (11.6-16.5); WHITE BLOOD COUNT 8.4 X10^3/uL (3.6-10.0)
[2021-05-30 21:15] LABS: ALANINE AMINOTRANSFERASE 20 Units/L (12-78); ALBUMIN 3.1 g/dL (3.4-5.0); ALKALINE PHOSPHATASE 125 Units/L (46-116); ASPARTATE AMINO TRANSFERASE 19 Units/L (15-37); BLOOD UREA NITROGEN 28 mg/dL (7-18); CALCIUM 8.7 mg/dL (8.5-10.1); CHLORIDE 102 mmol/L (98-107); COR CA(FOR HYPOALB) 9.4 mg/dL (8.5-10.1); CREATININE 1.98 mg/dL (0.55-1.02); SODIUM 140 mmol/L (136-145); TOTAL PROTEIN 7.6 g/dL (6.4-8.2); eGFR NON BLACK RACES 26 (>60)
[2021-05-30 21:19] LABS: LACTIC ACID 1.4 mmol/L (0.4-2.0)
[2021-05-30] MEDS ORDERED: ZOFRAN INJ 4 MG VIAL ONE (21:26)
[2021-05-30] MEDS ORDERED: NS 1,000 ML IV 1,000 ML ONE (21:26)
[2021-05-30] MEDS ORDERED: MORPHINE SULFATE INJ 4 MG ONE (21:26)
[2021-05-30] MEDS: NS 1,000 ML IV 1,000 ML IV SCH (21:57)
[2021-05-31] MEDS ORDERED: XANAX PO PRN (04:48)
[2021-05-31] MEDS ORDERED: NS 1,000 ML IV 1,000 ML IV SCH (04:48)
[2021-05-31] MEDS ORDERED: ZOFRAN TAB 4 MG PO PRN (04:48)
[2021-05-31] MEDS ORDERED: VANCOMYCIN IV *PREMIX 1 G/200 ML BAG 1 G/200 ML PIGGYBACK IV SCH ×2 (04:48→21:00)
[2021-05-31] MEDS ORDERED: VITAMIN D (1.25MG) PO SCH (04:48)
[2021-05-31] MEDS ORDERED: NITROSTAT SL SCH (04:48)
[2021-05-31] MEDS ORDERED: NITROSTAT SL PRN (04:54)
[2021-05-31] MEDS ORDERED: NS 1,000 ML IV 1,000 ML ONE (05:07)
[2021-05-31] MEDS ORDERED: CLEOCIN 300 MG IV PREMIX 300 MG/50 ML BAG IV ONE (05:07)
[2021-05-31] MEDS ORDERED: GLUCOPHAGE PO ONE (05:14)
[2021-05-31] MEDS ORDERED: LYRICA CAP 50 mg PO ONE (05:14)
[2021-05-31] MEDS: CLEOCIN 300 MG IV PREMIX 300 MG/50 ML BAG IV SCH ×2 (05:29→14:22)
[2021-05-31] MEDS: NS 1,000 ML IV 1,000 ML IV SCH ×2 (05:32→13:51)
[2021-05-31] MEDS: LYRICA CAP 50 mg PO SCH ×2 (05:33→14:22)
[2021-05-31] MEDS ORDERED: GLUCOPHAGE PO SCH (06:00)
[2021-05-31 06:06] LABS: BASOPHILS # (AUTO) 0.1 X10^3/uL (0.0-0.1); BASOPHILS % (AUTO) 1.2 % (0.2-1.0); EOSINOPHILS # (AUTO) 0.5 x10^3/uL (0.0-0.2); EOSINOPHILS % (AUTO) 5.4 % (0.9-2.9); HEMATOCRIT 31.8 % (36.0-47.0); HEMOGLOBIN 10.5 g/dL (12.0-16.0); LYMPHOCYTES % (AUTO) 33.1 % (21.0-51.0); MEAN CORPUSCULAR HEMOGLOBIN 29.8 pg (27.0-34.0); MEAN CORPUSCULAR VOLUME 90.3 fL (80.0-100.0); MEAN PLATELET VOLUME 9.4 fL (7.4-11.0); MONOCYTES # (AUTO) 0.8 x10^3/uL (0.3-0.8); MONOCYTES % (AUTO) 9.2 % (0.0-13.0); NEUTROPHILS # (AUTO) 4.6 x10^3/uL (2.2-4.8); NEUTROPHILS % (AUTO) 51.1 % (42.0-75.0); RED BLOOD COUNT 3.52 X10^6/uL (3.5-5.4); RED CELL DISTRIBUTION WIDTH 14.1 % (11.6-16.5); WHITE BLOOD COUNT 8.9 X10^3/uL (3.6-10.0)
[2021-05-31 07:04] LABS: ALBUMIN 2.7 g/dL (3.4-5.0); CALCIUM 8.9 mg/dL (8.5-10.1); CARBON DIOXIDE 25.9 mmol/L (21-32); COR CA(FOR HYPOALB) 9.9 mg/dL (8.5-10.1); CREATININE 1.62 mg/dL (0.55-1.02); TOTAL PROTEIN 7.7 g/dL (6.4-8.2)
[2021-05-31] MEDS: COREG TAB 12.5 MG PO SCH (08:58)
[2021-05-31] MEDS: CELEXA PO SCH (08:58)
[2021-05-31] MEDS: GLUCOPHAGE PO SCH (08:58)
[2021-05-31] MEDS: GLUCOTROL PO SCH (08:58)
[2021-05-31] MEDS: XARELTO PO SCH (08:59)
[2021-05-31] MEDS: VSL#3 PO SCH (08:59)
[2021-05-31] MEDS: TORADOL 15 MG VIAL IVP PRN (10:11)
--- NOTE | 2021-05-31 17:49 | DR.H&P ---
H&P - History & Physical for Day of: H&P Date: 05/31/21 - Chief Complaint Chief Complaint: LEFT GROIN WOUND - History of Present Illness History of Present Illness: IS A 70 YEAR OLD PATIENT OF T[facility] RAVI/. PATIENT PRESENTED TO THE ER WITH REPORTS OF AN OPEN WOUND TO THE LEFT SIDE GROIN. PATIENT REPORTS PURULENT DRAINAGE WITH FOUL SMELLING ODOR. PATIENT HAD AN AORTOAM, RIGHT LOWER EXTREMITY ARTERIOGRAM, LEFT COMMON FEMORAL ENDARTERECTOMY, AND PATCH ANGIOPLASTY ON 05/02/21. EXAMINATION REVEALED AN OPEN WOUND TO THE LEFT GROIN WITH TUNNELING AND PURULENT DRAINAGE. HER PMH INCLUDES CAD, MN, HYPERLIPIDEMIA, HTN, STENTS X 7, GERD, DIVERTICULOSIS, ARTHRITIS, DM II, HYPOTHYROIDISM, HYSTERECTOMY, BILATERAL KNEE REPLACEMENT, BOWEL RESECTION, AND RECENT ARTERIAL SURGERY. ON ARRIVAL TO THE ER, HER VITALS WERE 97.5-77-18-97%-150/67. LABS WERE OBTAINED. WBC 8.4, HGB 11.4, HCT 33.8, SODIUM 140, POTASSIUM 4.1, BUN 28, CREATININE 1.98, GLUCOSE 104, ALK PHOS 125, ALBUMIN 3.1. COVID-19 NEGATIVE. BLOOD AND WOUND CULTURES WERE SET UP. IN THE ER, SHE WAS GIVEN MORPHINE 4MG IV X 1, ZOFRAN 4MG IV X 1, VANCOMYCIN 1G IV X 1. SHE WAS ADMITTED TO THE HOSPITAL FOR CELLULITIS AND ABSCESS TO THE LEFT GROIN. SHE WAS STARTED ON NS AT 125 ML/HR, VANCOMYCIN 1G IV HS, CLINDAMYCIN 300MG IV Q8, TORADOL 15MG IV Q8H PRN, ZOFRAN 4MG PO Q8H PRN, PERCOCET 5/325MG PO Q6H PRN, AND HER HOME MEDICATIONS WERE RESUMED. WE WILL CONSULT REGARDING WOUND. OTHERWISE, WE PLAN TO FOLLOW UP WITH AM LABS AND CONTINUE TO MONITOR. - Past Medical History Past Medical History: Hypertension, Dyslipidemia, Diabetes, GERD - Past Surgical History Surgical History: Hysterectomy, Ortho Surgery - Family History Family Medical History: Diabetes Mellitus, Hypertension - Social History Alcohol Use: None Drug Use: None - Medications Home Medications: hydromorphone [From Dilaudid] Allergy (Verified 05/30/21 15:34) morphine Allergy (Verified 05/30/21 15:34) Penicillins Allergy (Verified 05/30/21 15:34) CONTINUE taking the following medications citalopram 20 mg PO DAILY 05/30/21 [History] clindamycin HCl 150 mg PO QID 05/30/21 [History] ergocalciferol (vitamin D2) [Vitamin D2] 1,250 mcg PO WEEKLY 05/30/21 [History] New Prescriptions cefdinir 300 mg PO BID #20 cap 05/30/21 [Rx] - Review of Systems Constitutional: Weakness Eyes: No Symptoms Reported ENT: No Symptoms Reported Respiratory: No Symptoms Reported Cardiovascular: No Symptoms Reported Gastrointestinal: No Symptoms Reported Genitourinary: No Symptoms Reported Musculoskeletal: Other (LEFT GROIN PAIN ) Skin: Wound (LEFT GROIN ) Neurological: Weakness - Physical Exam Vital Signs: Temperature 98 F Pulse Rate [Left Brachial] 75 Pulse Rate 61 Respiratory Rate 20 Blood Pressure [Left Arm] 128/58 Blood Pressure 122/61 O2 Sat by Pulse Oximetry 99 Oriented: Normal Eyes: Normal Ear: Normal Nose: Normal Throat: Normal Respiratory: Diminished Throughout Cardiovascular: Normal : Normal Auscultation: Bowel Sounds: Normal Palpation: Normal Tenderness: Normal Skin: Red, Tender, Wound (LEFT GROIN WOUND WITH TUNNELING AND PURULENT DRAINAGE ) Musculoskeletal: Normal Psychiatric: Normal Mood Description: Calm Affect: Normal Speech Pattern: Clear - Assessment/Plan (1) Cellulitis of groin, left Status: Acute Plan: ADMIT, NS AT 125 ML/HR, VANCOMYCIN 1G IV HS, CLINDAMYCIN 300MG IV Q8, TORADOL 15MG IV Q8H PRN, ZOFRAN 4MG PO Q8H PRN, PERCOCET 5/325MG PO Q6H PRN, AND HER HOME MEDICATIONS WERE RESUMED. 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 Diabetes mellitus complication status: with hyperglycemia Qualified Code(s): E11.65 - Type 2 diabetes mellitus with hyperglycemia; Z79.4 - termite exterminator (current) use of insulin Status: Chronic (4) HTN (hypertension) Qualifiers: Hypertension type: primary hypertension Qualified Code(s): I10 - Essential (primary) hypertension Status: Chronic - Allergies Allergies/Adverse Reactions: Allergies Allergy/AdvReac Type Severity Reaction Status Date / Time hydromorphone [From Dilaudid] Allergy Verified 05/30/21 15:34 morphine Allergy Verified 05/30/21 15:34 Penicillins Allergy Verified 05/30/21 15:34
[2021-06-01] MEDS ORDERED: LYRICA CAP 50 mg PO ONE (07:00)
[2021-06-01] MEDS ORDERED: COREG TAB 12.5 MG PO ONE (09:00)
[2021-06-01] MEDS ORDERED: GLUCOTROL PO ONE (09:00)
[2021-06-01] MEDS ORDERED: XARELTO PO ONE (09:00)
[2021-06-01] MEDS ORDERED: GLUCOPHAGE PO ONE (09:00)
[2021-06-01] MEDS ORDERED: VSL#3 PO ONE (09:00)
[2021-06-01] MEDS ORDERED: CELEXA PO ONE (09:00)
[2021-06-01] MEDS ORDERED: NS 1,000 ML IV IV ONE (09:30)
[2021-06-01 14:04] LABS: ALANINE AMINOTRANSFERASE 23 Units/L (12-78); ALBUMIN 2.7 g/dL (3.4-5.0); ALKALINE PHOSPHATASE 114 Units/L (46-116); ASPARTATE AMINO TRANSFERASE 19 Units/L (15-37); BLOOD UREA NITROGEN 21 mg/dL (7-18); CALCIUM 8.8 mg/dL (8.5-10.1); CARBON DIOXIDE 25.7 mmol/L (21-32); CHLORIDE 106 mmol/L (98-107); COR CA(FOR HYPOALB) 9.8 mg/dL (8.5-10.1); CREATININE 1.19 mg/dL (0.55-1.02); SODIUM 140 mmol/L (136-145); TOTAL PROTEIN 7.7 g/dL (6.4-8.2); eGFR NON BLACK RACES 48 (>60)
[2021-06-01 14:09] LABS: BASOPHILS # (AUTO) 0.1 X10^3/uL (0.0-0.1); BASOPHILS % (AUTO) 0.7 % (0.2-1.0); EOSINOPHILS # (AUTO) 0.5 x10^3/uL (0.0-0.2); EOSINOPHILS % (AUTO) 5.8 % (0.9-2.9); HEMATOCRIT 29.3 % (36.0-47.0); HEMOGLOBIN 9.5 g/dL (12.0-16.0); LYMPHOCYTES # (AUTO) 1.8 X10^3/uL (1.3-2.9); MEAN CORPUSCULAR HEMOGLOBIN 29.5 pg (27.0-34.0); MEAN CORPUSCULAR HGB CONC 32.6 g/dL (33.0-35.0); MEAN CORPUSCULAR VOLUME 90.5 fL (80.0-100.0); MEAN PLATELET VOLUME 9.5 fL (7.4-11.0); MONOCYTES # (AUTO) 0.7 x10^3/uL (0.3-0.8); MONOCYTES % (AUTO) 9.4 % (0.0-13.0); NEUTROPHILS # (AUTO) 4.8 x10^3/uL (2.2-4.8); NEUTROPHILS % (AUTO) 61.1 % (42.0-75.0); RED BLOOD COUNT 3.24 X10^6/uL (3.5-5.4); RED CELL DISTRIBUTION WIDTH 14.4 % (11.6-16.5); WHITE BLOOD COUNT 7.9 X10^3/uL (3.6-10.0)
[2021-06-01] MEDS: COREG TAB 12.5 MG PO SCH ×2 (15:27→20:34)
[2021-06-01] MEDS: GLUCOTROL PO SCH ×2 (15:27→20:33)
[2021-06-01] MEDS: GLUCOPHAGE PO SCH ×2 (15:27→20:32)
[2021-06-01] MEDS: NS 1,000 ML IV 1,000 ML IV SCH (15:28)
[2021-06-01] MEDS: LYRICA CAP 50 mg PO SCH ×2 (15:29→21:20)
[2021-06-01] MEDS: CELEXA PO SCH (15:29)
[2021-06-01] MEDS: CLEOCIN 300 MG IV PREMIX 300 MG/50 ML BAG IV SCH ×2 (15:29→21:19)
[2021-06-01] MEDS: XARELTO PO SCH ×2 (15:29→20:32)
[2021-06-01] MEDS: VSL#3 PO SCH (15:29)
[2021-06-01] MEDS: PERCOCET TAB 5/325 MG PO PRN (16:44)
[2021-06-01] MEDS: CIPRO IV 400 MG PREMIX* 400 MG/200 ML IV.SOLN. IV SCH ×2 (18:05→20:39)
--- NOTE | 2021-06-01 19:29 | PCM.PROG ---
Progress Note Progress Note for Day of Date of Exam: 06/01/21 Subjective Subjective: No complaints this am. Resting well. No problems overnight. Past Medical Family Social History Past Med/Fam/Surg Hx: No changes since H&P Allergies: Allergies hydromorphone [From Dilaudid] Allergy (Verified 05/30/21 15:34) morphine Allergy (Verified 05/30/21 15:34) Penicillins Allergy (Verified 05/30/21 15:34) Review of Systems ROS: No change since H&P Vital Signs and I&O's Vital Signs: Temperature 98.2 F Pulse Rate [Left Brachial] 75 Pulse Rate 66 Respiratory Rate 22 Blood Pressure [Left Arm] 128/58 Blood Pressure 122/51 O2 Sat by Pulse Oximetry 97 Intake and Output: Intake & Output 05/30/21 05/31/21 06/01/21 06/02/21 11:59 11:59 11:59 11:59 Intake Total 1100 / 1100 880 / 880 Output Total 250 / 250 Balance 850 / 850 880 / 880 Physical Exam Oriented: Normal Eyes: Normal Ear: Normal Nose: Normal Throat: Normal Respiratory: Normal Cardiovascular: Normal : Normal Auscultation: Bowel Sounds: Normal Palpation: Normal Tenderness: Normal Skin: Wound (left groin with yelloish/green discharge.) Musculoskeletal: Normal Psychiatric: Normal Mood Description: Calm Affect: Normal Speech Pattern: Clear and Appropriate Laboratory and Diagnostics Result Diagrams: 06/01/21 05:00 06/01/21 06:28 Labs: 05/30/21 20:40 Blood Blood Culture - Preliminary 05/30/21 20:35 Blood Blood Culture - Preliminary 05/30/21 19:54 Groin Wound Gram Stain - Final 05/30/21 19:54 Groin Wound Culture - Preliminary Klebsiella Pneumoniae Laboratory WBC 7.9 X10^3/uL (3.6-10.0) 06/01/21 05:00 RBC 3.24 X10^6/uL (3.5-5.4) L 06/01/21 05:00 Hgb 9.5 g/dL (12.0-16.0) L 06/01/21 05:00 Hct 29.3 % (36.0-47.0) L 06/01/21 05:00 MCV 90.5 fL (80.0-100.0) 06/01/21 05:00 MCH 29.5 pg (27.0-34.0) 06/01/21 05:00 MCHC 32.6 g/dL (33.0-35.0) L 06/01/21 05:00 RDW 14.4 % (11.6-16.5) 06/01/21 05:00 Plt Count 275 X10^3/uL (150.0-450.0) 06/01/21 05:00 MPV 9.5 fL (7.4-11.0) 06/01/21 05:00 Neut % (Auto) 61.1 % (42.0-75.0) 06/01/21 05:00 Lymph % (Auto) 23.0 % (21.0-51.0) 06/01/21 05:00 [place] % (Auto) 9.4 % (0.0-13.0) 06/01/21 05:00 Eos % (Auto) 5.8 % (0.9-2.9) H 06/01/21 05:00 Baso % (Auto) 0.7 % (0.2-1.0) 06/01/21 05:00 Neut # (Auto) 4.8 x10^3/uL (2.2-4.8) 06/01/21 05:00 Lymph # (Auto) 1.8 X10^3/uL (1.3-2.9) 06/01/21 05:00 [place] # (Auto) 0.7 x10^3/uL (0.3-0.8) 06/01/21 05:00 Eos # (Auto) 0.5 x10^3/uL (0.0-0.2) H 06/01/21 05:00 Baso # (Auto) 0.1 X10^3/uL (0.0-0.1) 06/01/21 05:00 Absolute Nucleated RBC 0.1 /100WBC 06/01/21 05:00 Sodium 140 mmol/L (136-145) 06/01/21 06:28 Corrected Sodium TNP 06/01/21 06:28 Potassium 4.3 mmol/L (3.5-5.1) 06/01/21 06:28 Chloride 106 mmol/L (98-107) 06/01/21 06:28 Carbon Dioxide 25.7 mmol/L (21-32) 06/01/21 06:28 BUN 21 mg/dL (7-18) H 06/01/21 06:28 Creatinine 1.19 mg/dL (0.55-1.02) H 06/01/21 06:28 Est GFR (MDRD) Af Amer 58 (>60) L 06/01/21 06:28 Est GFR (MDRD) Non-Af 48 (>60) L 06/01/21 06:28 Glucose 69 mg/dL (65-99) 06/01/21 06:28 POC Glucose (mg/dL) 80 mg/dL (65-99) 05/31/21 16:49 Lactic Acid 1.4 mmol/L (0.4-2.0) 05/30/21 20:40 Calcium 8.8 mg/dL (8.5-10.1) 06/01/21 06:28 Corrected Calcium 9.8 mg/dL (8.5-10.1) 06/01/21 06:28 Total Bilirubin 0.30 mg/dL (0.2-1.0) 06/01/21 06:28 AST 19 Units/L (15-37) 06/01/21 06:28 ALT 23 Units/L (12-78) 06/01/21 06:28 Alkaline Phosphatase 114 Units/L (46-116) 06/01/21 06:28 Total Protein 7.7 g/dL (6.4-8.2) 06/01/21 06:28 Albumin 2.7 g/dL (3.4-5.0) L 06/01/21 06:28 Globulin 5.0 g/dL (2.5-4.5) H 06/01/21 06:28 Albumin/Globulin Ratio 0.5 Ratio (1.1-2.1) L 06/01/21 06:28 SARS CoV-2 RNA Rapid ROSSY Negative (NEGATIVE) 05/31/21 01:22 Plan (1) Abscess of left groin: Status: Acute Plan: Cipro 400 mg bid (2) HTN (hypertension): Status: Acute (3) Diabetes mellitus: Status: Acute
[2021-06-01] MEDS ORDERED: GLUCOPHAGE ONE (20:10)
[2021-06-01] MEDS: ZESTRIL TAB 10 MG PO SCH (20:32)
[2021-06-01] MEDS: LASIX PO SCH (20:33)
[2021-06-01] MEDS: ZANAFLEX PO SCH (20:33)
[2021-06-01] MEDS: DESYREL PO SCH (20:33)
[2021-06-01] MEDS: ZETIA TAB 10 MG PO SCH (20:34)
[2021-06-01] MEDS: PROTONIX TAB 40 MG PO SCH (20:34)
[2021-06-01] MEDS: SNACK - Diabetic Appropriate PO SCH (20:35)
[2021-06-02] MEDS: NS 1,000 ML IV 1,000 ML IV SCH ×4 (00:14→21:12)
[2021-06-02] MEDS: CLEOCIN 300 MG IV PREMIX 300 MG/50 ML BAG IV SCH (05:24)
[2021-06-02] MEDS: LYRICA CAP 50 mg PO SCH ×3 (05:25→21:14)
[2021-06-02 07:11] LABS: BASOPHILS # (AUTO) 0.1 X10^3/uL (0.0-0.1); BASOPHILS % (AUTO) 0.9 % (0.2-1.0); EOSINOPHILS # (AUTO) 0.4 x10^3/uL (0.0-0.2); EOSINOPHILS % (AUTO) 5.8 % (0.9-2.9); HEMATOCRIT 26.7 % (36.0-47.0); HEMOGLOBIN 8.8 g/dL (12.0-16.0); LYMPHOCYTES # (AUTO) 2.3 X10^3/uL (1.3-2.9); LYMPHOCYTES % (AUTO) 31.7 % (21.0-51.0); MEAN CORPUSCULAR HEMOGLOBIN 29.7 pg (27.0-34.0); MEAN CORPUSCULAR HGB CONC 32.9 g/dL (33.0-35.0); MEAN CORPUSCULAR VOLUME 90.3 fL (80.0-100.0); MEAN PLATELET VOLUME 9.5 fL (7.4-11.0); MONOCYTES # (AUTO) 0.6 x10^3/uL (0.3-0.8); MONOCYTES % (AUTO) 8.9 % (0.0-13.0); NEUTROPHILS # (AUTO) 3.9 x10^3/uL (2.2-4.8); NEUTROPHILS % (AUTO) 52.7 % (42.0-75.0); RED BLOOD COUNT 2.96 X10^6/uL (3.5-5.4); WHITE BLOOD COUNT 7.3 X10^3/uL (3.6-10.0)
[2021-06-02 07:24] LABS: BLOOD UREA NITROGEN 19 mg/dL (7-18); CALCIUM 8.2 mg/dL (8.5-10.1); CARBON DIOXIDE 24.7 mmol/L (21-32); CHLORIDE 104 mmol/L (98-107); CREATININE 1.33 mg/dL (0.55-1.02); SODIUM 141 mmol/L (136-145); eGFR NON BLACK RACES 42 (>60)
[2021-06-02 07:50] LABS: ALANINE AMINOTRANSFERASE 18 Units/L (12-78); ALBUMIN 2.4 g/dL (3.4-5.0); ALKALINE PHOSPHATASE 100 Units/L (46-116); ASPARTATE AMINO TRANSFERASE 15 Units/L (15-37); COR CA(FOR HYPOALB) 9.5 mg/dL (8.5-10.1); TOTAL PROTEIN 6.1 g/dL (6.4-8.2)
[2021-06-02] MEDS ORDERED: GLUCOPHAGE ONE ×2 (07:52→20:19)
[2021-06-02] MEDS: GLUCOPHAGE PO SCH ×2 (09:33→21:09)
[2021-06-02] MEDS: XARELTO PO SCH ×2 (09:33→21:10)
[2021-06-02] MEDS: GLUCOTROL PO SCH ×2 (09:34→21:11)
[2021-06-02] MEDS: CIPRO IV 400 MG PREMIX* 400 MG/200 ML IV.SOLN. IV SCH ×2 (09:34→21:14)
[2021-06-02] MEDS: CELEXA PO SCH (09:34)
[2021-06-02] MEDS: COREG TAB 12.5 MG PO SCH ×2 (09:34→21:10)
[2021-06-02] MEDS: VSL#3 PO SCH (09:35)
[2021-06-02] MEDS: TORADOL 15 MG VIAL IVP PRN (14:51)
[2021-06-02] MEDS: PERCOCET TAB 5/325 MG PO PRN (17:40)
--- NOTE | 2021-06-02 17:54 | NOTE.SOAP ---
Soap Note Note for Day of Date of Exam: 06/01/21 Subjective Data Subjective Data: Patient will known to me status post left femoral endarterectomy and Patch angioplasty. I have followed her in the office for a wound infection with necrotic subcutaneous tissue the superior most part of the left groin incision at the sight of overlap of her pannus . She has been treated antibiotics. She was placed on Santyl in my office to be applied to the wound daily. She had called my office c/o drainage and odor from the wound . Evaluated in the ER and admitted. Objective Data Temperature: 98.2 F Pulse Rate: 66 Respiratory Rate: 22 Blood Pressure: 122/61 O2 Sat by Pulse Oximetry: 97 Objective Data: Griffith exudate at superior most apex of left groin wound under the pannus. No cellulitis . WBC 7.3 and has not been elevated . Assessment Assessment: Wound infection to left groin wound secondary to maceration due to her large pannus. Plan Plan: Would add Santyl to wound daily. Can probable be discharged home soon. Recommend Home Health to apply Santyl to wound daily.
[2021-06-02 18:06] VITALS: BP 122/61
[2021-06-02] MEDS: SNACK - Diabetic Appropriate PO SCH (20:11)
[2021-06-02] MEDS ORDERED: PHARMACY COMMENT IV NR (20:30)
[2021-06-02] MEDS: PROTONIX TAB 40 MG PO SCH (21:09)
[2021-06-02] MEDS: ZANAFLEX PO SCH (21:10)
[2021-06-02] MEDS: LASIX PO SCH (21:10)
[2021-06-02] MEDS: ZETIA TAB 10 MG PO SCH (21:11)
[2021-06-02] MEDS: DESYREL PO SCH (21:11)
[2021-06-02] MEDS: ZESTRIL TAB 10 MG PO SCH (21:13)
[2021-06-03 01:47] LABS: CREATININE 1.39 mg/dL (0.55-1.02); VANCOMYCIN,TROUGH 7.1 ug/mL (15-20)
[2021-06-03] MEDS: LYRICA CAP 50 mg PO SCH ×2 (05:41→14:41)
[2021-06-03] MEDS: NS 1,000 ML IV 1,000 ML IV SCH ×2 (05:43→12:44)
[2021-06-03 06:59] LABS: BASOPHILS # (AUTO) 0.1 X10^3/uL (0.0-0.1); BASOPHILS % (AUTO) 0.8 % (0.2-1.0); EOSINOPHILS # (AUTO) 0.5 x10^3/uL (0.0-0.2); EOSINOPHILS % (AUTO) 6.8 % (0.9-2.9); HEMATOCRIT 26.2 % (36.0-47.0); HEMOGLOBIN 8.8 g/dL (12.0-16.0); LYMPHOCYTES # (AUTO) 2.2 X10^3/uL (1.3-2.9); LYMPHOCYTES % (AUTO) 33.1 % (21.0-51.0); MEAN CORPUSCULAR HEMOGLOBIN 30.2 pg (27.0-34.0); MEAN CORPUSCULAR HGB CONC 33.5 g/dL (33.0-35.0); MEAN CORPUSCULAR VOLUME 90.1 fL (80.0-100.0); MEAN PLATELET VOLUME 9.6 fL (7.4-11.0); MONOCYTES # (AUTO) 0.5 x10^3/uL (0.3-0.8); MONOCYTES % (AUTO) 7.3 % (0.0-13.0); NEUTROPHILS # (AUTO) 3.4 x10^3/uL (2.2-4.8); RED BLOOD COUNT 2.91 X10^6/uL (3.5-5.4); WHITE BLOOD COUNT 6.6 X10^3/uL (3.6-10.0)
[2021-06-03 07:12] LABS: CALCIUM 8.4 mg/dL (8.5-10.1); CARBON DIOXIDE 24.2 mmol/L (21-32); CREATININE 1.26 mg/dL (0.55-1.02)
[2021-06-03 07:33] LABS: ALBUMIN 2.3 g/dL (3.4-5.0); COR CA(FOR HYPOALB) 9.8 mg/dL (8.5-10.1); TOTAL PROTEIN 6.6 g/dL (6.4-8.2)
[2021-06-03] MEDS ORDERED: GLUCOPHAGE ONE (07:50)
[2021-06-03] MEDS: CIPRO IV 400 MG PREMIX* 400 MG/200 ML IV.SOLN. IV SCH (08:22)
[2021-06-03] MEDS: VSL#3 PO SCH (08:22)
[2021-06-03] MEDS: GLUCOTROL PO SCH (08:22)
[2021-06-03] MEDS: COREG TAB 12.5 MG PO SCH (08:23)
[2021-06-03] MEDS: XARELTO PO SCH (08:23)
[2021-06-03] MEDS: GLUCOPHAGE PO SCH (08:23)
[2021-06-03] MEDS: CELEXA PO SCH (08:23)
[2021-06-03] MEDS ORDERED: ALBUMIN HUMAN 25%- 100 ML 100 ML IV SCH (09:00)
--- NOTE | 2021-06-03 13:08 | PCM.PROG ---
Progress Note Progress Note for Day of Date of Exam: 06/02/21 Subjective Subjective: No complaints this am. Resting well. No problems overnight. Feels better today. Wound culture sensitive to Rochephin. Will D/C Clindamycin and Vancomycin. Past Medical Family Social History Past Med/Fam/Surg Hx: No changes since H&P Allergies: Allergies hydromorphone [From Dilaudid] Allergy (Verified 05/30/21 15:34) morphine Allergy (Verified 05/30/21 15:34) Penicillins Allergy (Verified 05/30/21 15:34) Review of Systems ROS: No change since H&P Vital Signs and I&O's Vital Signs: Temperature 98.2 F Pulse Rate [Left Brachial] 75 Pulse Rate 66 Respiratory Rate 18 Blood Pressure [Left Arm] 128/58 Blood Pressure 122/61 O2 Sat by Pulse Oximetry 97 Intake and Output: Intake & Output 06/01/21 06/02/21 06/03/21 06/04/21 11:59 11:59 11:59 11:59 Intake Total 2815 / 2815 2450 / 2450 Balance 2815 / 2815 2450 / 2450 Physical Exam Oriented: Normal Eyes: Normal Ear: Normal Nose: Normal Throat: Normal Respiratory: Normal Cardiovascular: Normal : Normal Auscultation: Bowel Sounds: Normal Tenderness: Normal Skin: Wound (left groin with yelloish/green discharge.) Musculoskeletal: Normal Psychiatric: Normal Mood Description: Calm Affect: Normal Speech Pattern: Clear and Appropriate Laboratory and Diagnostics Result Diagrams: 06/03/21 06:30 06/03/21 06:30 Labs: 05/30/21 20:40 Blood Blood Culture - Preliminary 05/30/21 20:35 Blood Blood Culture - Preliminary 05/30/21 19:54 Groin Wound Gram Stain - Final 05/30/21 19:54 Groin Wound Culture - Preliminary Klebsiella Pneumoniae Laboratory WBC 6.6 X10^3/uL (3.6-10.0) 06/03/21 06:30 RBC 2.91 X10^6/uL (3.5-5.4) L 06/03/21 06:30 Hgb 8.8 g/dL (12.0-16.0) L 06/03/21 06:30 Hct 26.2 % (36.0-47.0) L 06/03/21 06:30 MCV 90.1 fL (80.0-100.0) 06/03/21 06:30 MCH 30.2 pg (27.0-34.0) 06/03/21 06:30 MCHC 33.5 g/dL (33.0-35.0) 06/03/21 06:30 RDW 14.0 % (11.6-16.5) 06/03/21 06:30 Plt Count 225 X10^3/uL (150.0-450.0) 06/03/21 06:30 MPV 9.6 fL (7.4-11.0) 06/03/21 06:30 Neut % (Auto) 52.0 % (42.0-75.0) 06/03/21 06:30 Lymph % (Auto) 33.1 % (21.0-51.0) 06/03/21 06:30 [place] % (Auto) 7.3 % (0.0-13.0) 06/03/21 06:30 Eos % (Auto) 6.8 % (0.9-2.9) H 06/03/21 06:30 Baso % (Auto) 0.8 % (0.2-1.0) 06/03/21 06:30 Neut # (Auto) 3.4 x10^3/uL (2.2-4.8) 06/03/21 06:30 Lymph # (Auto) 2.2 X10^3/uL (1.3-2.9) 06/03/21 06:30 [place] # (Auto) 0.5 x10^3/uL (0.3-0.8) 06/03/21 06:30 Eos # (Auto) 0.5 x10^3/uL (0.0-0.2) H 06/03/21 06:30 Baso # (Auto) 0.1 X10^3/uL (0.0-0.1) 06/03/21 06:30 Absolute Nucleated RBC 0.1 /100WBC 06/03/21 06:30 Sodium 139 mmol/L (136-145) 06/03/21 06:30 Corrected Sodium 140 mmol/L (136-145) 06/03/21 06:30 Potassium 4.1 mmol/L (3.5-5.1) 06/03/21 06:30 Chloride 105 mmol/L (98-107) 06/03/21 06:30 Carbon Dioxide 24.2 mmol/L (21-32) 06/03/21 06:30 BUN 21 mg/dL (7-18) H 06/03/21 06:30 Creatinine 1.26 mg/dL (0.55-1.02) H 06/03/21 06:30 Est GFR (MDRD) Af Amer 54 (>60) L 06/03/21 06:30 Est GFR (MDRD) Non-Af 45 (>60) L 06/03/21 06:30 Glucose 153 mg/dL (65-99) H 06/03/21 06:30 POC Glucose (mg/dL) 80 mg/dL (65-99) 05/31/21 16:49 Lactic Acid 1.4 mmol/L (0.4-2.0) 05/30/21 20:40 Calcium 8.4 mg/dL (8.5-10.1) L 06/03/21 06:30 Corrected Calcium 9.8 mg/dL (8.5-10.1) 06/03/21 06:30 Total Bilirubin 0.20 mg/dL (0.2-1.0) 06/03/21 06:30 AST 14 Units/L (15-37) L 06/03/21 06:30 ALT 15 Units/L (12-78) 06/03/21 06:30 Alkaline Phosphatase 101 Units/L (46-116) 06/03/21 06:30 Total Protein 6.6 g/dL (6.4-8.2) 06/03/21 06:30 Albumin 2.3 g/dL (3.4-5.0) L 06/03/21 06:30 Globulin 4.3 g/dL (2.5-4.5) 06/03/21 06:30 Albumin/Globulin Ratio 0.5 Ratio (1.1-2.1) L 06/03/21 06:30 Vancomycin Trough 7.1 ug/mL (15-20) L 06/03/21 00:00 SARS CoV-2 RNA Rapid ROSSY Negative (NEGATIVE) 05/31/21 01:22 Plan (1) Abscess of left groin: Status: Acute Plan: Change to Rocephin for Coverage of Klebsiella pneumoniae. (2) HTN (hypertension): Status: Acute (3) Diabetes mellitus: Status: Acute
--- NOTE | 2021-06-03 15:31 | PCM.PROG ---
Progress Note - Progress Note for Day of Date of Exam: 06/03/21 - Subjective Subjective: WAS ADMITTED FOR TREATMENT OF CELLULITIS AND ABSCESS TO THE LEFT GROIN. SHE HAS BEEN FOLLOWED BY , GENERAL/VASCULAR SURGEON SINCE ADMISSION. TODAY, SHE IS ALERT AND ORIENTED, LYING IN BED ON MORNING ROUNDS. SHE CONTINUES WITH DISCOMFORT TO THE LEFT GROIN REGION. ON EXAMINATION, HEART IS REGULAR IN RATE AND RHYTHM. BILATERAL LUNGS ARE NOTED WITH DIMINISHED LUNG SOUNDS THROUGHOUT. ABDOMEN IS ROUND, SOFT, AND NON-TENDER WITH NORMAL BOWEL SOUNDS NOTED IN ALL QUADRANTS. OPEN WOUND NOTED TO THE LEFT GROIN WITH NECROBIT SUBCUTATNEOUS TISSUE. NO DRAINAGE NOTED THIS MORNING. LABS WERE OBTAINED. ABNORMAL LAB VALUES INCLUDE THE FOLLOWING: RBC 2.91, HGB 8.8, HCT 26.2, BUN 21, CREATININE 1.26, GLUCOSE 153, CALCIUM 8.4, AST 14, ALBUMIN 2.3. WOUND CULTURE POSITIVE FOR GROWTH OF KLEBSIELLA PNEUMONIAE. SHE IS CURRETLY RECEIVING NS AT 125 ML/HR, CIPRO 400MG IV Q12H, TORADOL 15MG IV Q8H PRN, ZOFRAN 4MG PO Q8H PRN, PERCOCET 5/325MG PO Q6H PRN, AND HER HOME MEDICATIONS WERE RESUMED. WE WILL CONTINUE WITH WOUND CARE AND CURRENT PLAN OF CARE TODAY. OTHERWISE, WE PLAN TO FOLLOW UP WITH AM LABS AND CONTINUE TO MONITOR. TIME SPENT ON CLINICAL ASSESSMENT, REVIEWING LABS AND IMAGING, DECISION MAKING, AND DOCUMENTATION WAS GREATER THAN 45 MINUTES. - Past Medical Family Social History Past Med/Fam/Surg Hx: No changes since H&P Allergies: Allergies hydromorphone [From Dilaudid] Allergy (Verified 05/30/21 15:34) morphine Allergy (Verified 05/30/21 15:34) Penicillins Allergy (Verified 05/30/21 15:34) - Review of Systems ROS: No change since H&P - Vital Signs and I&O's Vital Signs: Temperature 98.2 F Pulse Rate [Left Brachial] 75 Pulse Rate 66 Respiratory Rate 18 Blood Pressure [Left Arm] 128/58 Blood Pressure 122/61 O2 Sat by Pulse Oximetry 97 Intake and Output: Intake & Output 06/01/21 06/02/21 06/03/21 06/04/21 11:59 11:59 11:59 11:59 Intake Total 2815 / 2815 2450 / 2450 Balance 2814 / 281 2450 / 2450 - Physical Exam Oriented: Normal Eyes: Normal Ear: Normal Nose: Normal Throat: Normal Respiratory: Diminished Cardiovascular: Normal : Normal Auscultation: Bowel Sounds: Normal Palpation: Normal Tenderness: Normal Skin: Wound (left groin with yelloish/green discharge.) Musculoskeletal: Normal Psychiatric: Normal Mood Description: Calm Affect: Normal Speech Pattern: Clear, Appropriate - Laboratory and Diagnostics Result Diagrams: 06/03/21 06:30 06/03/21 06:30 Labs: 05/30/21 20:40 Blood Blood Culture - Preliminary 05/30/21 20:35 Blood Blood Culture - Preliminary 05/30/21 19:54 Groin Wound Gram Stain - Final 05/30/21 19:54 Groin Wound Culture - Preliminary Klebsiella Pneumoniae Laboratory WBC 6.6 X10^3/uL (3.6-10.0) 06/03/21 06:30 RBC 2.91 X10^6/uL (3.5-5.4) L 06/03/21 06:30 Hgb 8.8 g/dL (12.0-16.0) L 06/03/21 06:30 Hct 26.2 % (36.0-47.0) L 06/03/21 06:30 MCV 90.1 fL (80.0-100.0) 06/03/21 06:30 MCH 30.2 pg (27.0-34.0) 06/03/21 06:30 MCHC 33.5 g/dL (33.0-35.0) 06/03/21 06:30 RDW 14.0 % (11.6-16.5) 06/03/21 06:30 Plt Count 225 X10^3/uL (150.0-450.0) 06/03/21 06:30 MPV 9.6 fL (7.4-11.0) 06/03/21 06:30 Neut % (Auto) 52.0 % (42.0-75.0) 06/03/21 06:30 Lymph % (Auto) 33.1 % (21.0-51.0) 06/03/21 06:30 [place] % (Auto) 7.3 % (0.0-13.0) 06/03/21 06:30 Eos % (Auto) 6.8 % (0.9-2.9) H 06/03/21 06:30 Baso % (Auto) 0.8 % (0.2-1.0) 06/03/21 06:30 Neut # (Auto) 3.4 x10^3/uL (2.2-4.8) 06/03/21 06:30 Lymph # (Auto) 2.2 X10^3/uL (1.3-2.9) 06/03/21 06:30 [place] # (Auto) 0.5 x10^3/uL (0.3-0.8) 06/03/21 06:30 Eos # (Auto) 0.5 x10^3/uL (0.0-0.2) H 06/03/21 06:30 Baso # (Auto) 0.1 X10^3/uL (0.0-0.1) 06/03/21 06:30 Absolute Nucleated RBC 0.1 /100WBC 06/03/21 06:30 Sodium 139 mmol/L (136-145) 06/03/21 06:30 Corrected Sodium 140 mmol/L (136-145) 06/03/21 06:30 Potassium 4.1 mmol/L (3.5-5.1) 06/03/21 06:30 Chloride 105 mmol/L (98-107) 06/03/21 06:30 Carbon Dioxide 24.2 mmol/L (21-32) 06/03/21 06:30 BUN 21 mg/dL (7-18) H 06/03/21 06:30 Creatinine 1.26 mg/dL (0.55-1.02) H 06/03/21 06:30 Est GFR (MDRD) Af Amer 54 (>60) L 06/03/21 06:30 Est GFR (MDRD) Non-Af 45 (>60) L 06/03/21 06:30 Glucose 153 mg/dL (65-99) H 06/03/21 06:30 POC Glucose (mg/dL) 151 mg/dL (65-99) H 06/03/21 05:27 Lactic Acid 1.4 mmol/L (0.4-2.0) 05/30/21 20:40 Calcium 8.4 mg/dL (8.5-10.1) L 06/03/21 06:30 Corrected Calcium 9.8 mg/dL (8.5-10.1) 06/03/21 06:30 Total Bilirubin 0.20 mg/dL (0.2-1.0) 06/03/21 06:30 AST 14 Units/L (15-37) L 06/03/21 06:30 ALT 15 Units/L (12-78) 06/03/21 06:30 Alkaline Phosphatase 101 Units/L (46-116) 06/03/21 06:30 Total Protein 6.6 g/dL (6.4-8.2) 06/03/21 06:30 Albumin 2.3 g/dL (3.4-5.0) L 06/03/21 06:30 Globulin 4.3 g/dL (2.5-4.5) 06/03/21 06:30 Albumin/Globulin Ratio 0.5 Ratio (1.1-2.1) L 06/03/21 06:30 Vancomycin Trough 7.1 ug/mL (15-20) L 06/03/21 00:00 SARS CoV-2 RNA Rapid ROSSY Negative (NEGATIVE) 05/31/21 01:22 - Plan (1) Cellulitis of groin, left Status: Acute (2) Abscess of left groin Status: Acute (3) Diabetes mellitus Status: Chronic Qualifiers: Diabetes mellitus type: type 2 Diabetes mellitus medical terminologist insulin use: with usp use Diabetes mellitus complication status: with hyperglycemia Qualified Code(s): E11.65 - Type 2 diabetes mellitus with hyperglycemia; Z79.4 - ocean transportation intermediary (current) use of insulin (4) HTN (hypertension) Status: Chronic Qualifiers: Hypertension type: primary hypertension Qualified Code(s): I10 - Essential (primary) hypertension
== END 2021-06-03 18:15 | disposition home health service (06) ==
LOC: ER 15:33 → U 15:33 → MED/SURG 05-31 16:26
PROVIDERS: ADMIT Internal Medicine; ATTEND Internal Medicine